=== PATIENT | male | born 1990 | race Caucasian/White ===

== ENCOUNTER 2016-06-19 04:20 | Emergency (ER) | payer SELFPAY ==
[~2016-06-19] VITALS: Ht 180.3 cm; Wt 64.0 kg
--- NOTE | 2016-06-19 04:30 | NUR ---
[facility] FOR REPORT HEART PALPITATIONS S/P INJECTING HEROIN [id number] CAREER TECHNICAL EDUCATION INSTRUCTOR, BG 134 IN FIELD. PT AOX4 RR EVEN AND UNLABORED. NO SOB NOTED. NAD NOTED. NO NVD AT THS TIME. PT GOWNED AND PLACED ON MONITOR. AT BEDSIDE FOR EVAL.
[2016-06-19 05:28] VITALS: BP 128/70
--- NOTE | 2016-06-19 05:40 | NUR ---
Patient discharged to home in stable condition. Written and verbal after care instructions given. Patient verbalizes understanding of instruction. ambulatory with a steady gait
== END 2016-06-19 05:41 | disposition home or self-care (01) ==
LOC: ER 04:21
DX: F41.9 Anxiety disorder, unspecified (principal); F11.10 Opioid abuse, uncomplicated; F17.200 Nicotine dependence, unspecified, uncomplicated
CPT/HCPCS: 93005; 99283; A4606; Z7610

== ENCOUNTER → 2016-12-06 | Emergency (ER) | payer SELFPAY ==
[~2016-12-06] VITALS: Ht 180.3 cm; Wt 68.0 kg
--- NOTE | 2016-12-06 09:50 | NUR ---
BRITTNEY AND JUDSON FOR PSYCHE EVAL. PATIENT IN CUSTODY. PT IS AAO4. APPEARS IN NO APPARENT DISTRESS. RESPIRATION EVEN AND UNLABORED. VSS, DENIES SI. DENIES HI
--- NOTE | 2016-12-06 09:54 | NUR ---
MD MONAE AT BEDSIDE
[2016-12-06 10:06] LABS: BASOPHILS # (AUTO) 0.1 /CMM (0.0-0.2); BASOPHILS % (AUTO) 1.4 % (0.0-2.0); EOSINOPHILS # (AUTO) 0.1 /CMM (0.0-0.7); EOSINOPHILS % (AUTO) 1.1 % (0.0-6.0); HEMATOCRIT 43 % (39-51); HEMOGLOBIN 14.3 g/dL (13.5-17.5); LYMPHOCYTES # (AUTO) 2.1 /CMM (0.8-4.8); LYMPHOCYTES % (AUTO) 37.8 % (20.0-44.0); MEAN CORPUSCULAR HEMOGLOBIN 31 PG (26.0-33.0); MEAN CORPUSCULAR HGB CONC 33 g/dl (31.0-36.0); MEAN CORPUSCULAR VOLUME 92 fL (80-96); MONOCYTES # (AUTO) 0.6 /CMM (0.1-1.30); NEUTROPHILS # (AUTO) 2.6 /CMM (1.8-8.9); NEUTROPHILS % (AUTO) 48.7 % (43.0-81.0); PLATELET COUNT (AUTO) 318 /CMM (150-450); RDW COEFFICIENT OF VARIATION 13.7 (11.5-15.0); RED BLOOD CELL COUNT(AUTO) 4.62 MIL/uL (4.5-6.0); WHITE BLOOD COUNT (AUTO) 5.5 K/uL (4.3-11.0)
--- NOTE | 2016-12-06 10:06 | NUR ---
PATIENT NOT IN CUSTODY
--- NOTE | 2016-12-06 10:08 | NUR ---
URINE OBTAINED AND SENT TO LAB.
[2016-12-06 10:16] LABS: CALCIUM, SERUM 8.6 mg/dL (8.5-10.1); CARBON DIOXIDE 28 mmol/L (21-32); CHLORIDE 103 mmol/L (98-107); CREATININE 1.1 mg/dL (0.6-1.3); GLUCOSE 101 mg/dL (74-106); POTASSIUM 3.8 mmol/L (3.5-5.1); SODIUM SERUM 139 mmol/L (136-145); UREA NITROGEN, BLOOD 16 mg/dL (7-18)
[2016-12-06 10:22] LABS: ALANINE AMINOTRANSFERASE 96 U/L (12-78); ALBUMIN 3.8 g/dL (3.4-5.0); ALKALINE PHOSPHATASE 45 U/L (46-116); ASPARTATE AMINOTRANSFERASE 32 U/L (15-37); BILIRUBIN,DIRECT 0.1 mg/dL (0.0-0.2); BILIRUBIN,TOTAL 0.6 mg/dL (0.2-1.0); TOTAL PROTEIN, SERUM 7.5 g/dL (6.4-8.2)
[2016-12-06 10:24] LABS: ACETAMINOPHEN 0 ug/ml (10-30); ALCOHOL, BLOOD < 3 mg/dL (0-0); SALICYLATE 1.8 mg/dL (2.8-20.0)
--- NOTE | 2016-12-06 10:33 | NUR ---
UNA RN,ACADEMIC ASSISTANT CALLED FOR EVAL
[2016-12-06 10:40] LABS: BILIRUBIN,URINE Negative (NEGATIVE); BLOOD, URINE Negative Ery/uL (NEGATIVE); KETONES,URINE Trace (NEGATIVE); LEUKOCYTE ESTERASE ,URINE Negative (NEGATIVE); NITRITE, URINE Negative (NEGATIVE); PROTEIN,URINE Trace mg/dl (NEGATIVE); UGLUCOSE Negative (NEGATIVE); UROBILINOGEN,URINE 0.2 EU/dL (0.2)
[2016-12-06 10:42] LABS: APPEARANCE,URINE Hazy (CLEAR); COLOR,URINE Dark Yellow (YELLOW)
[2016-12-06 10:45] LABS: BACTERIA,URINE None seen /HPF (None Seen); RBC,URINE 0-3 /HPF (0-2); WBC,URINE 0-2 /HPF (0-3)
[2016-12-06 10:46] LABS: SQUAMOUS EPITHELIAL CELL,UR Few /HPF (None Seen); URINE AMORPHOUS URATE Few /HPF (None Seen)
--- NOTE | 2016-12-06 11:38 | NUR ---
UNA, CRISIS RN AT BS
[2016-12-06 11:44] VITALS: BP 132/88
== END | disposition home or self-care (01) ==
LOC: ER 09:53
DX: F41.9 Anxiety disorder, unspecified (principal); F15.10 Other stimulant abuse, uncomplicated; F32.9 Major depressive disorder, single episode, unspecified; F17.200 Nicotine dependence, unspecified, uncomplicated; F11.10 Opioid abuse, uncomplicated
CPT/HCPCS: 36415; 80048-TC; 80076-TC; 80305; 81000-TC; 85025-TC; A4606; G0480; Z7610

== ENCOUNTER 2017-01-06 06:04 | Emergency (ER) | payer SELFPAY ==
[~2017-01-06] VITALS: Ht 172.7 cm; Wt 59.0 kg
[2017-01-06 06:07] VITALS: BP 121/67
== END 2017-01-06 06:36 ==
LOC: ER 06:06
DX: F22 Delusional disorders (principal); F15.10 Other stimulant abuse, uncomplicated; F31.9 Bipolar disorder, unspecified; F17.200 Nicotine dependence, unspecified, uncomplicated; F11.10 Opioid abuse, uncomplicated
CPT/HCPCS: 99283; A4606; Z7610

== ENCOUNTER 2017-01-06 11:51 | Emergency (ER) | payer SELFPAY ==
[~2017-01-06] VITALS: Ht 175.3 cm; Wt 79.4 kg
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
--- NOTE | 2017-01-06 12:00 | NUR ---
dr patel at bedside for eval.
--- NOTE | 2017-01-06 12:02 | NUR ---
engineer geophysical laboratory at bedside for blood draw.
--- NOTE | 2017-01-06 12:02 | NUR ---
Meliza castillo in [place] - 01/06/17 at 1213 by CHAI slab worker at bedside for christinaal.
[2017-01-06 12:11] LABS: BASOPHILS % (AUTO) 0.5 % (0.0-2.0); EOSINOPHILS # (AUTO) 0.1 /CMM (0.0-0.7); EOSINOPHILS % (AUTO) 0.8 % (0.0-6.0); HEMATOCRIT 44 % (39-51); HEMOGLOBIN 15.1 g/dL (13.5-17.5); LYMPHOCYTES # (AUTO) 2.2 /CMM (0.8-4.8); LYMPHOCYTES % (AUTO) 29.4 % (20.0-44.0); MEAN CORPUSCULAR HEMOGLOBIN 31 PG (26.0-33.0); MEAN CORPUSCULAR HGB CONC 34 g/dl (31.0-36.0); MEAN CORPUSCULAR VOLUME 91 fL (80-96); MONOCYTES # (AUTO) 0.8 /CMM (0.1-1.30); MONOCYTES % (AUTO) 10.6 % (2.0-12.0); NEUTROPHILS # (AUTO) 4.2 /CMM (1.8-8.9); NEUTROPHILS % (AUTO) 58.7 % (43.0-81.0); PLATELET COUNT (AUTO) 327 /CMM (150-450); RDW COEFFICIENT OF VARIATION 12.9 (11.5-15.0); RED BLOOD CELL COUNT(AUTO) 4.83 MIL/uL (4.5-6.0); WHITE BLOOD COUNT (AUTO) 7.3 K/uL (4.3-11.0)
[2017-01-06 12:20] LABS: CALCIUM, SERUM 9.4 mg/dL (8.5-10.1); CARBON DIOXIDE 28 mmol/L (21-32); CHLORIDE 105 mmol/L (98-107); CREATININE 1.2 mg/dL (0.6-1.3); GLUCOSE 102 mg/dL (74-106); POTASSIUM 4.1 mmol/L (3.5-5.1); SODIUM SERUM 140 mmol/L (136-145); UREA NITROGEN, BLOOD 15 mg/dL (7-18)
[2017-01-06 12:25] LABS: ALANINE AMINOTRANSFERASE 158 U/L (12-78); ALBUMIN 3.9 g/dL (3.4-5.0); ALCOHOL, BLOOD < 3 mg/dL (0-0); ALKALINE PHOSPHATASE 44 U/L (46-116); ASPARTATE AMINOTRANSFERASE 56 U/L (15-37); BILIRUBIN,DIRECT 0.1 mg/dL (0.0-0.2); BILIRUBIN,TOTAL 0.4 mg/dL (0.2-1.0); TOTAL PROTEIN, SERUM 7.5 g/dL (6.4-8.2)
[2017-01-06 12:26] LABS: ACETAMINOPHEN < 2 ug/ml (10-30); SALICYLATE 2.3 mg/dL (2.8-20.0)
[2017-01-06 12:53] LABS: BILIRUBIN,URINE Negative (NEGATIVE); BLOOD, URINE Negative Ery/uL (NEGATIVE); COLOR,URINE Yellow (YELLOW); KETONES,URINE 15 (NEGATIVE); LEUKOCYTE ESTERASE ,URINE Negative (NEGATIVE); NITRITE, URINE Negative (NEGATIVE); PH,URINE 8.5 (5.0-8.0); PROTEIN,URINE Trace mg/dl (NEGATIVE); UGLUCOSE Negative (NEGATIVE)
[2017-01-06 13:00] LABS: APPEARANCE,URINE CLOUDY (CLEAR)
[2017-01-06 13:05] LABS: BACTERIA,URINE Rare /HPF (None Seen); RBC,URINE NONE SEEN /HPF (0-2); SQUAMOUS EPITHELIAL CELL,UR Few /HPF (None Seen); WBC,URINE NONE SEEN /HPF (0-3)
--- NOTE | 2017-01-06 13:05 | NUR ---
CALLED [facility]IE FOR PSYCH EVAL, ETA WITHIN THE HOUR
--- NOTE | 2017-01-06 13:55 | NUR ---
héctor rn at bedside for psych eval.
[2017-01-06] MEDS ORDERED: QUETIAPINE FUMARATE 100 MG TABLET PO SCH (15:00)
[2017-01-06] MEDS ORDERED: QUETIAPINE FUMARATE 25 MG TABLET ONE (15:00)
--- NOTE | 2017-01-06 15:00 | NUR ---
pt is restless, requesting to go out and smoke. states he cant sleep and wants to and requesting a sleep aid. ermd aware.
--- NOTE | 2017-01-06 15:04 | NUR ---
medicated as ordered.
--- NOTE | 2017-01-06 19:05 | NUR ---
pt resting in bed. provided w/ sandwich and oral fluids. on monitor. stable vitals. will continue to monitor.
--- NOTE | 2017-01-06 23:36 | NUR ---
REPORT TO CHARGE NURSE EFREN FOR TRAY.
[2017-01-07] MEDS ORDERED: LORAZEPAM 1 MG TABLET ONE (01:04)
[2017-01-07] MEDS ORDERED: LORAZEPAM 1 MG TABLET PO ONE (01:30)
[2017-01-07] MEDS ORDERED: OLANZAPINE 10 MG VIAL IM ONE ×2 (03:21→03:30)
[2017-01-07] MEDS ORDERED: LORAZEPAM INJ 2 MG/ML VIAL ONE (03:24)
[2017-01-07] MEDS ORDERED: LORAZEPAM INJ 2 MG/ML VIAL IM ONE (03:30)
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
[2017-01-07 03:34] VITALS: BP 142/79
--- NOTE | 2017-01-07 09:28 | NUR ---
A/O X 4,DENIES SI/HI,AMBULATED TO THE BATHROOM W/ STEADY GAIT.ASKED TO BE CLEARED BY THE DOCTOR
--- NOTE | 2017-01-07 09:35 | NUR ---
DR PONCE WENT TO SEE PATIENT BUT PATIENT WAS NO LONGER THERE.
== END 2017-01-07 09:38 | disposition left against medical advice (07) ==
LOC: ER 11:53
DX: F22 Delusional disorders (principal); F15.10 Other stimulant abuse, uncomplicated; F31.9 Bipolar disorder, unspecified; F17.200 Nicotine dependence, unspecified, uncomplicated; F11.10 Opioid abuse, uncomplicated
CPT/HCPCS: 36415; 80048; 80076; 80305; 80329; 81001; 85025; 96372 ×2; 99284; A4606; G0480 ×2; J2060; J3490; Z7610; 81000-TC

== ENCOUNTER 2017-05-27 22:51 | Emergency (ER) | payer MEDICAID ==
[~2017-05-27] VITALS: Ht 182.9 cm; Wt 65.8 kg
--- NOTE | 2017-05-27 22:55 | NUR ---
URINE SPECIMEN OBTAINED AND SENT TO THE LAB.
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
--- NOTE | 2017-05-27 23:10 | NUR ---
AT BEDSIDE FOR EVAL.
--- NOTE | 2017-05-27 23:15 | NUR ---
LAB AT BEDSIDE FOR DRAW.
[2017-05-27 23:19] LABS: BASOPHILS % (AUTO) 0.5 % (0.0-2.0); EOSINOPHILS % (AUTO) 0.7 % (0.0-6.0); HEMATOCRIT 42 % (39-51); HEMOGLOBIN 14.5 g/dL (13.5-17.5); LYMPHOCYTES # (AUTO) 2.2 /CMM (0.8-4.8); LYMPHOCYTES % (AUTO) 26.4 % (20.0-44.0); MEAN CORPUSCULAR HGB CONC 34 g/dl (31.0-36.0); MEAN CORPUSCULAR VOLUME 92 fL (80-96); MONOCYTES # (AUTO) 0.9 /CMM (0.1-1.30); MONOCYTES % (AUTO) 11.3 % (2.0-12.0); NEUTROPHILS # (AUTO) 5.1 /CMM (1.8-8.9); NEUTROPHILS % (AUTO) 61.1 % (43.0-81.0); PLATELET COUNT (AUTO) 184 /CMM (150-450); RDW COEFFICIENT OF VARIATION 12.9 (11.5-15.0); RED BLOOD CELL COUNT(AUTO) 4.57 MIL/uL (4.5-6.0); WHITE BLOOD COUNT (AUTO) 8.3 K/uL (4.3-11.0)
[2017-05-27 23:29] LABS: APPEARANCE,URINE CLEAR (CLEAR); BILIRUBIN,URINE 2+ (NEGATIVE); BLOOD, URINE NEGATIVE Ery/uL (NEGATIVE); COLOR,URINE DARK YELLO (YELLOW); KETONES,URINE 2+ (NEGATIVE); LEUKOCYTE ESTERASE ,URINE NEGATIVE (NEGATIVE); NITRITE, URINE NEGATIVE (NEGATIVE); PH,URINE 5.5 (5.0-8.0); PROTEIN,URINE NEGATIVE (NEGATIVE); UGLUCOSE NEGATIVE (NEGATIVE); UROBILINOGEN,URINE 0.2 EU/dL (0.2)
[2017-05-27 23:38] LABS: BACTERIA,URINE None seen /HPF (None Seen); RBC,URINE NONE SEEN /HPF (0-2); SQUAMOUS EPITHELIAL CELL,UR Few /HPF (None Seen)
--- NOTE | 2017-05-28 00:15 | NUR ---
PT GIVEN SANDWICH AND ORANGE JUICE. VSS.
[2017-05-28 00:33] LABS: CALCIUM, SERUM 9.2 mg/dL (8.5-10.1); CARBON DIOXIDE 21 mmol/L (21-32); CHLORIDE 99 mmol/L (98-107); GLUCOSE 77 mg/dL (74-106); POTASSIUM 4.1 mmol/L (3.5-5.1); SODIUM SERUM 136 mmol/L (136-145); UREA NITROGEN, BLOOD 20 mg/dL (7-18)
--- NOTE | 2017-05-28 00:36 | NUR ---
RICK BIBLE TEACHER PAGED.
[2017-05-28 00:37] LABS: ACETAMINOPHEN 0 ug/ml (10-30); ALANINE AMINOTRANSFERASE 78 U/L (12-78); ALBUMIN 4.1 g/dL (3.4-5.0); ALCOHOL, BLOOD < 3 mg/dL (0-0); ALKALINE PHOSPHATASE 44 U/L (46-116); ASPARTATE AMINOTRANSFERASE 45 U/L (15-37); BILIRUBIN,DIRECT 0.2 mg/dL (0.0-0.2); BILIRUBIN,TOTAL 0.9 mg/dL (0.2-1.0); SALICYLATE 2.7 mg/dL (2.8-20.0); TOTAL PROTEIN, SERUM 8.1 g/dL (6.4-8.2)
[2017-05-28] MEDS ORDERED: LORAZEPAM 1 MG TABLET ONE (01:26)
[2017-05-28] MEDS ORDERED: LORAZEPAM 1 MG TABLET PO ONE (01:30)
--- NOTE | 2017-05-28 01:45 | NUR ---
RICK AT BEDSIDE FOR EVAL.
[2017-05-28 03:58] VITALS: BP 130/80
== END 2017-05-28 03:58 | disposition home or self-care (01) ==
LOC: ER 22:52
DX: F41.9 Anxiety disorder, unspecified (principal); F19.10 Other psychoactive substance abuse, uncomplicated; F31.9 Bipolar disorder, unspecified; F17.200 Nicotine dependence, unspecified, uncomplicated
CPT/HCPCS: 36415; 80048-TC; 80076-TC; 80305; 81000-TC; 85025-TC; A4606; G0480; Z7610

== ENCOUNTER 2017-08-31 20:26 | Inpatient (IN) | payer MEDICAID, OTHER ==
[~2017-08-31] VITALS: Ht 180.3 cm; Wt 66.7 kg
--- NOTE | 2017-08-31 20:34 | NUR ---
REPORT GIVEN TO DARREN RIBEIRO BED 118-1T
[2017-08-31 20:48] LABS: BASOPHILS # (AUTO) 0.2 /CMM (0.0-0.2); BASOPHILS % (AUTO) 1.3 % (0.0-2.0); EOSINOPHILS % (AUTO) 0.4 % (0.0-6.0); HEMATOCRIT 46 % (39-51); LYMPHOCYTES # (AUTO) 0.9 /CMM (0.8-4.8); LYMPHOCYTES % (AUTO) 5.2 % (20.0-44.0); MEAN CORPUSCULAR HEMOGLOBIN 33 PG (26.0-33.0); MEAN CORPUSCULAR HGB CONC 35 g/dl (31.0-36.0); MEAN CORPUSCULAR VOLUME 94 fL (80-96); MONOCYTES # (AUTO) 0.8 /CMM (0.1-1.30); MONOCYTES % (AUTO) 4.8 % (2.0-12.0); NEUTROPHILS # (AUTO) 14.6 /CMM (1.8-8.9); NEUTROPHILS % (AUTO) 88.3 % (43.0-81.0); PLATELET COUNT (AUTO) 261 /CMM (150-450); RDW COEFFICIENT OF VARIATION 12.4 (11.5-15.0); RED BLOOD CELL COUNT(AUTO) 4.93 MIL/uL (4.5-6.0); WHITE BLOOD COUNT (AUTO) 16.6 K/uL (4.3-11.0)
[2017-08-31 21:01] LABS: CALCIUM, SERUM 8.8 mg/dL (8.5-10.1); CARBON DIOXIDE 26 mmol/L (21-32); CHLORIDE 101 mmol/L (98-107); CREATININE 1.6 mg/dL (0.6-1.3); GLUCOSE 191 mg/dL (74-106); POTASSIUM 3.9 mmol/L (3.5-5.1); SODIUM SERUM 138 mmol/L (136-145); UREA NITROGEN, BLOOD 21 mg/dL (7-18)
--- NOTE | 2017-08-31 21:06 | NUR ---
PT BROUGHT TO CT.
[2017-08-31 21:13] LABS: ALANINE AMINOTRANSFERASE 422 U/L (12-78); ALBUMIN 3.7 g/dL (3.4-5.0); ALCOHOL, BLOOD < 3 mg/dL (0-0); ALKALINE PHOSPHATASE 74 U/L (46-116); ASPARTATE AMINOTRANSFERASE 102 U/L (15-37); BILIRUBIN,DIRECT 0.1 mg/dL (0.0-0.2); BILIRUBIN,TOTAL 0.3 mg/dL (0.2-1.0); TOTAL PROTEIN, SERUM 7.5 g/dL (6.4-8.2)
[2017-08-31 21:22] LABS: ACETAMINOPHEN < 2 ug/ml (10-30); SALICYLATE 2.5 mg/dL (2.8-20.0)
--- NOTE | 2017-08-31 21:29 | NUR ---
CALLED DR TOBY GARCÍA ON THE PHONE WITH DR MONAE.
[2017-08-31] MEDS ORDERED: IV NS 0.9% 1,000 ML BAG IV ONE (21:30)
[2017-08-31] MEDS ORDERED: LIDOCAINE 2% JEL UROJET 10 ML MM ONE ×2 (21:34→22:00)
[2017-08-31] MEDS ORDERED: NALOXONE PREFILLED SYRINGE 2 MG/2 ML SYRINGE ONE (21:34)
[2017-08-31] MEDS ORDERED: ONDANSETRON HCL/PF 4 MG/2 ML VIAL ONE (21:35)
[2017-08-31] MEDS ORDERED: ONDANSETRON HCL/PF 4 MG/2 ML VIAL IV ONE (22:00)
[2017-08-31] MEDS ORDERED: NALOXONE HCL 0.4 MG/ML AMPUL IV ONE (22:00)
[2017-08-31 22:17] LABS: APPEARANCE,URINE SL CLOUDY (CLEAR); BILIRUBIN,URINE NEGATIVE (NEGATIVE); BLOOD, URINE NEGATIVE Ery/uL (NEGATIVE); COLOR,URINE YELLOW (YELLOW); KETONES,URINE NEGATIVE (NEGATIVE); LEUKOCYTE ESTERASE ,URINE NEGATIVE (NEGATIVE); NITRITE, URINE NEGATIVE (NEGATIVE); PROTEIN,URINE TRACE mg/dl (NEGATIVE); UGLUCOSE NEGATIVE (NEGATIVE); UROBILINOGEN,URINE 0.2 EU/dL (0.2)
[2017-08-31 22:30] LABS: BACTERIA,URINE None seen /HPF (None Seen); MUCUS,URINE Moderate /LPF (None Seen); RBC,URINE 0-2 /HPF (0-2); SQUAMOUS EPITHELIAL CELL,UR Few /HPF (None Seen); WBC,URINE 0-2 /HPF (0-3)
--- NOTE | 2017-08-31 23:00 | NUR ---
PT TRANSP TO BED 118-1 STABLE CONDITION. ENDORSED TO DARREN RIBEIRO
--- NOTE | 2017-08-31 23:30 | NUR ---
AUTOMATIC TRANSMISSION MECHANIC NOTE PT RECEIVED FROM ER, REPORT GIVEN BY ROSA MARIA. PT A&O3. PT PLACED ON TELE. SR HR 79. PT HAS A #18G IN (L) EJ IV FLUIDS INFUSING ORDERED. 1;1 SITTER AT BED SIDE. ALL SAFETY PRECAUTIONS TAKEN. WILL CONT TO MONITOR.
[2017-09-01] VITALS (7 sets, daily range): BP systolic 90–119; BP diastolic 53–64
[2017-09-01] MEDS ORDERED: MAG HYDROX/AL HYDROX/SIMETH 30 ML UDC PO PRN (00:30)
[2017-09-01] MEDS ORDERED: Z GUARD REMEDY 2 OZ OINT TP PRN (00:30)
[2017-09-01] MEDS ORDERED: LORAZEPAM INJ 2 MG/ML VIAL IV PRN (00:30)
[2017-09-01] MEDS ORDERED: HYDROCODONE/APAP 5/325MG 1 EACH TABLET PO PRN (00:30)
[2017-09-01] MEDS ORDERED: MORPHINE SULFATE INJ 2 MG/ML DISP.SYRIN IV PRN (00:30)
[2017-09-01] MEDS ORDERED: ACETAMINOPHEN 325 MG TABLET PO PRN (00:30)
[2017-09-01] MEDS ORDERED: MAGNESIUM HYDROXIDE 30 ML UDC PO PRN (00:30)
[2017-09-01] MEDS ORDERED: ZOLPIDEM TARTRATE 5 MG TABLET PO PRN (00:30)
[2017-09-01] MEDS ORDERED: ONDANSETRON HCL/PF 4 MG/2 ML VIAL IVP PRN (00:30)
[2017-09-01] MEDS: IV D5/0.45 NACL 1,000 ML IV PRN ×3 (00:41→17:23)
[2017-09-01] MEDS: ENOXAPARIN SODIUM 40 MG/0.4 ML DISP.SYRIN SQ SCH ×2 (00:46→23:41)
--- NOTE | 2017-09-01 07:17 | NUR ---
RN CLOSING NOTES NO SIGNIFICANT CHANGE IN PTS CONDITION OVER SHIFT. ALL ADMISSION ORDERS CARRIED OUT. ALL SAFETY PRECAUTIONS ENFORCED. 1:1 SITTER AT BED SIDE. WILL ENDORSE TO AM RN.
--- NOTE | 2017-09-01 07:30 | NUR ---
OPHTHALMIC NURSE INITIAL NOTES: RECEIVED PT IN BED SLEEPING, EASY TO AROUSE. A&O X3. ON O2 VIA NC AT LPM, SATURATING 99%. NO SOB NOTED AT THIS TIME. ON TELE MONITOR SINUS RHYTHM 74. 1:1 SITTER AT BEDSIDE ORDERED FOR SAFETY. IV TO L HAND INTACT, CONNECTED TO IV FLUIDS ORDERED. BED IN LOW LOCKED POSITION, CALL LIGHT WITHIN REACH. PT DENIES ANY PAIN OR DISCOMFORT AT THIS TIME, INQUIRING ABOUT WHEN HE CAN BE DISCHARGED. AWAITING PSYCH EVAL AND MD ROUNDS, PT AWARE. WILL CONTINUE TO MONITOR.
--- NOTE | 2017-09-01 09:00 | NUR ---
SCARF AND ANNEAL OPERATOR NOTES: PT'S MOM WEN (TONY) CALLED TO CHECK ON HER SON. STATED SHE WAS WORKING FOR 3 DAYS AND SHE CAME HOME AND FOUND HIM UNRESPONSIVE WHICH IS WHEN 911 WAS CALLED. PER MOM, PT HAS HOME MEDICATIONS OF ABILIFY AND ZOLOFT, WELL VISTARIL PRN. ALTHOUGH SHE IS UNSURE IF HE TAKES HIS MEDICATIONS ON A REGULAR BASIS. MOM IS ALSO CONCERNED THAT THIS WAS NOT ACCIDENTAL AND THAT HE HAS A HISTORY OF METH USE, WELL HEROIN. HE HAS BEEN HOSPITALIZED IN THE PAST AT [facility] FOR PSYCH PROBLEMS. WILL NOTIFY PSYCHOLOGIST DURING ROUNDS. PT CLOSELY MONITORED, 1:1 SITTER AT BEDSIDE AT ALL TIMES.
--- NOTE | 2017-09-01 09:28 | NUR ---
MOTHER: WEN (TONY). CELL PHONE # [phone]
--- NOTE | 2017-09-01 11:40 | NUR ---
[employer] NOTES: DR YOUNGBLOOD AT PT'S BEDSIDE FOR ASSESSMENT.
--- NOTE | 2017-09-01 18:00 | NUR ---
ORDERS: PER DR YOUNGBLOOD, CRISIS TEAM TO SEE PT. CHARGE NURSE AWARE, CRISIS TEAM WILL SEE PT TOMORROW MORNING. D/C IV FLUIDS, D/C TELE AND PLACE ON MED/SURG. CARRIED OUT
--- NOTE | 2017-09-01 18:30 | NUR ---
RN M/S END NOTES: PT SLEEPING IN BED, EASY TO AROUSE. NO C/O PAIN OR DISCOMFORT AT THIS TIME. DENIES SUICIDAL IDEATIONS. ON ROOM AIR, SATURATING 97% AND NO SOB NOTED. IV TO LH IN PLACE, SL. BED IN LOW LOCKED POSITION, CALL LIGHT WITHIN REACH. 1:[address] ORDERED. WILL ENDORSE TO PM SHIFT FOR CONTINUITY OF CARE.
--- NOTE | 2017-09-01 19:25 | NUR ---
RN M/S NOTE PATIENT RECEIVED RESTING COMFORTABLY IN BED, AOX3, SPEECH CLEAR, NO S/SX OF RESPIRATORY OR CARDIAC DISTRESS, ON ROOM AIR, DENIES PAIN, SKIN KEPT CLEAN AND DRY, SITTER AT BEDSIDE, , PATENT FLUSHING WELL, SITE CDI, RAC #18G WITH NS AT 100ML/HR, PATENT FLUSHING WELL, SITE CDI, SAFETY MAINTAINED AT ALL TIMES, CALL LIGHT WITHIN REACH, BED IN LOW LOCKED POSITION, WILL CONTINUE TO MONITOR FOR ANY CHANGES IN CONDITION. Addendum: 09/01/17 at 2026 by CARRILLO VICENTE RN (NO IV IN RAC) L EJ #18G SL, PATENT FLUSHING WELL, SITE CDI, L HAND #18G SD PATENT FLUSHING WELL, SITE CDI, PATENT FLUSHING WELL, SITE CDI, SAFETY MAINTAINED AT ALL TIMES, CALL LIGHT WITHIN REACH, BED IN LOW LOCKED POSITION, WILL CONTINUE TO MONITOR FOR ANY CHANGES IN CONDITION.
[2017-09-02 04:00] VITALS: BP 101/53
[2017-09-02 06:38] LABS: BASOPHILS % (AUTO) 0.5 % (0.0-2.0); HEMATOCRIT 40 % (39-51); HEMOGLOBIN 13.5 g/dL (13.5-17.5); LYMPHOCYTES % (AUTO) 33.4 % (20.0-44.0); MEAN CORPUSCULAR HEMOGLOBIN 33 PG (26.0-33.0); MEAN CORPUSCULAR HGB CONC 33 g/dl (31.0-36.0); MEAN CORPUSCULAR VOLUME 97 fL (80-96); MONOCYTES # (AUTO) 0.8 /CMM (0.1-1.30); MONOCYTES % (AUTO) 13.6 % (2.0-12.0); NEUTROPHILS % (AUTO) 50.5 % (43.0-81.0); PLATELET COUNT (AUTO) 202 /CMM (150-450); RDW COEFFICIENT OF VARIATION 13.3 (11.5-15.0); RED BLOOD CELL COUNT(AUTO) 4.16 MIL/uL (4.5-6.0); WHITE BLOOD COUNT (AUTO) 5.9 K/uL (4.3-11.0)
[2017-09-02 06:55] LABS: CALCIUM, SERUM 8.2 mg/dL (8.5-10.1); MAGNESIUM 1.8 mg/dL (1.8-2.4); PHOSPHORUS 2.6 mg/dL (2.5-4.9); POTASSIUM 4.5 mmol/L (3.5-5.1)
--- NOTE | 2017-09-02 07:36 | NUR ---
RN MS NOTES: RECEIVED PT ON BED ALERT, ORIENTED X3. VERBALLY RESPONSIVE. NO ACUTE DISTRESS NOTED. NO COMPLAINTS OF PAIN OR DISCOMFORT. NO SOB. SITTER AT BEDSIDE. IV ON LEFT EJ G18 AND LEFT HAND G18 INTACT AND PATENT. KEPT CLEAN, DRY AND COMFORTABLE. SAFETY AND FALL PRECAUTIONS OBSERVED AND MAINTAINED. CALL LIGHT WITHIN REACH. WILL CONTINUE TO MONITOR PT.
[2017-09-02 08:00] VITALS: BP 126/70
--- NOTE | 2017-09-02 11:50 | NUR ---
MS RN NOTES: PT WAS DISCHARGED HOME IN STABLE CONDITION. NO ACUTE DISTRESS NOTED. DENIES PAIN. NO SOB NOTED. IV ON LEFT HAND AND LEFT EJ WAS REMOVED. SKIN IS INTACT. DISCHARGE INSTRUCTIONS GIVEN. BELONGINGS LIST SIGNED AND DONE.
--- NOTE | 2017-09-03 09:59 | NUR ---
workers' compensation commissioner received consult for this patient. However, patient was discharged on 09/02/2017. SW unable to meet with the pt.
== END 2017-09-02 11:59 | disposition home or self-care (01) | DRG 816 ==
LOC: ER 20:27 → TELE 21:40 → TELE1 22:30 → MEDSG1 09-01 18:14
PROVIDERS: ADMIT Internal Medicine; ATTEND Internal Medicine
DX: T40.1X1A Poisoning by heroin, accidental (unintentional), initial encounter (principal); N17.0 Acute kidney failure with tubular necrosis; T42.4X1A Poisoning by benzodiazepines, accidental (unintentional), initial encounter; D72.829 Elevated white blood cell count, unspecified; Y92.009 Unspecified place in unspecified non-institutional (private) residence as the place of occurrence of the external cause; T43.621A Poisoning by amphetamines, accidental (unintentional), initial encounter; F17.210 Nicotine dependence, cigarettes, uncomplicated; F31.9 Bipolar disorder, unspecified; F41.9 Anxiety disorder, unspecified; R74.8 Abnormal levels of other serum enzymes
CPT/HCPCS: 36415; 70450-TC; 71045-TC; 80048-TC; 80076-TC; 80305; 81000-TC; 82550-TC; 83735-TC; 84100-TC; 85025-TC; 87081-TC; A4606; G0480; J1650; J2060; J2310; J2405; J3490; J7030; Z7610

== ENCOUNTER 2017-12-19 14:46 | Inpatient (IN) ==
[~2017-12-19] VITALS: Ht 180.3 cm; Wt 61.7 kg
--- NOTE | 2017-12-19 14:53 | NUR ---
PT BIB RA. APPARENT HEROIN OVERDOSE. GIVEN 2MG NARCAN IN RA VIA IV. PT STATES "FEELS LIKE SHIT" NO ACUTE DISTRESS NOTED. RESP EVEN/UNLABOURED. AOX4. NO SUICIDAL IDEATION. IN ER BED ON MONITOR.
[2017-12-19] MEDS ORDERED: IV NS 0.9% 500 ML BAG IV ONE (15:00)
[2017-12-19 15:16] LABS: BASOPHILS % (AUTO) 0.3 % (0.0-2.0); EOSINOPHILS % (AUTO) 0.4 % (0.0-6.0); HEMATOCRIT 48 % (39-51); HEMOGLOBIN 15.9 g/dL (13.5-17.5); LYMPHOCYTES # (AUTO) 1.1 /CMM (0.8-4.8); LYMPHOCYTES % (AUTO) 10.8 % (20.0-44.0); MEAN CORPUSCULAR HGB CONC 33 g/dl (31.0-36.0); MEAN CORPUSCULAR VOLUME 95 fL (80-96); MONOCYTES # (AUTO) 0.8 /CMM (0.1-1.30); MONOCYTES % (AUTO) 7.5 % (2.0-12.0); NEUTROPHILS # (AUTO) 8.5 /CMM (1.8-8.9); PLATELET COUNT (AUTO) 271 /CMM (150-450); RDW COEFFICIENT OF VARIATION 14.5 (11.5-15.0); RED BLOOD CELL COUNT(AUTO) 5.07 MIL/uL (4.5-6.0); WHITE BLOOD COUNT (AUTO) 10.5 K/uL (4.3-11.0)
[2017-12-19 15:20] LABS: CALCIUM, SERUM 9.3 mg/dL (8.5-10.1); CARBON DIOXIDE 26 mmol/L (21-32); CHLORIDE 101 mmol/L (98-107); CREATININE 1.4 mg/dL (0.6-1.3); GLUCOSE 133 mg/dL (74-106); POTASSIUM 3.7 mmol/L (3.5-5.1); SODIUM SERUM 136 mmol/L (136-145); UREA NITROGEN, BLOOD 14 mg/dL (7-18)
[2017-12-19 15:28] LABS: ALANINE AMINOTRANSFERASE 178 U/L (12-78); ALBUMIN 4.3 g/dL (3.4-5.0); ALKALINE PHOSPHATASE 58 U/L (46-116); ASPARTATE AMINOTRANSFERASE 51 U/L (15-37); BILIRUBIN,DIRECT 0.1 mg/dL (0.0-0.2); BILIRUBIN,TOTAL 0.3 mg/dL (0.2-1.0); SALICYLATE 0.8 mg/dL (2.8-20.0); TOTAL PROTEIN, SERUM 8.1 g/dL (6.4-8.2)
[2017-12-19 15:29] LABS: ACETAMINOPHEN < 0 ug/ml (10-30); ALCOHOL, BLOOD < 3 mg/dL (0-0)
[2017-12-19] MEDS ORDERED: PANTOPRAZOLE 40 MG TABLET.DR PO ONE (15:30)
[2017-12-19] MEDS ORDERED: NALOXONE PREFILLED SYRINGE 2 MG/2 ML SYRINGE ONE (15:38)
--- NOTE | 2017-12-19 15:40 | NUR ---
MD AT BEDSIDE. NOTED PT BECOMING MORE LETHARGIC, SHALLOW RESP. MD ORDER 2MG NARCAN.
--- NOTE | 2017-12-19 15:45 | NUR ---
CALLED NURSING STRICKLER ATTENDANT AND REQUESTED AN ICU BED FOR THIS PT.
[2017-12-19] MEDS ORDERED: NALOXONE HCL 0.4 MG/ML AMPUL IV ONE (16:00)
[2017-12-19] MEDS ORDERED: NALOXONE HCL 2 MG in IV D5W 245 ML IV PRN (16:00)
[2017-12-19] MEDS ORDERED: ALPR1TAB7 PO (16:06)
[2017-12-19] MEDS ORDERED: ARIP5TAB10 PO (16:06)
--- NOTE | 2017-12-19 16:17 | NUR ---
SPOKE WITH DR GARDNER AND JANELL PHARMACIST REGARDING NARCAN DRIP RATE. PER MD, INITIATE DRIP AT 1MG/HR AND TITRATE FOR LOC.
--- NOTE | 2017-12-19 16:41 | NUR ---
PT AWAKE ALERT ORIENTED. AROUSABLE. NARCAN DRIP INFUSING PER ORDERS. WILL CONTINUE TO MONITOR.
--- NOTE | 2017-12-19 17:18 | NUR ---
PT REMAINS AWAKE, ALERT, AND RESPONSIVE ON NARCAN DRIP AT 1MG/HR. VSS. CALLED FOR DINNER TRAY - OK PER DR GARDNER. REPORT CALLED TO JERRY BANKS FOR ADMISSION TO ICU
--- NOTE | 2017-12-19 17:21 | NUR ---
UNABLE TO PROVIDE URINE SAMPLE DESPITE MULTIPLE ATTEMPTS.
--- NOTE | 2017-12-19 17:40 | NUR ---
PT IS ASSIGNED TO ICU RM#: [id number], DX: HEROIN OVERDOSE, AND ACCEPTING MD: DR MONTANO
--- NOTE | 2017-12-19 18:11 | NUR ---
PT WILL NEED A TELE BED INSTEAD OF ICU
--- NOTE | 2017-12-19 18:49 | NUR ---
RESTING QUIETLY, NAD NOTED. NARCAN DRIP FINISHED. CLARIFIED ORDER WITH MD REGARDING CONTINUING NARCAN DRIP. PER MD, CONTINUE TO FLOOR. CALLED PHARMACY FOR NEW BAG.
--- NOTE | 2017-12-19 19:40 | NUR ---
CALLED NURSING NETWORK SECURITY CONSULTANT AND REQUESTED AN ICU BED FOR THIS PT.
--- NOTE | 2017-12-19 19:41 | NUR ---
REPORT GIVEN TO LAUREN BANKS FOR TRAY
--- NOTE | 2017-12-19 19:49 | NUR ---
PT IS ASSIGNED TO ICU RM#: [id number]
[2017-12-19] MEDS ORDERED: Potassium Chloride 20 MEQ in IV D5/ 0.9% NACL 1,000 ML IV PRN (20:30)
--- NOTE | 2017-12-19 20:50 | NUR ---
RN NOTE RECEIVED PT IN NO ACUTE DISTERSS IN BED. PT IS A/O X 4 AND ABLE TO MAKE NEEDS KNOWN. PT IS ON RA AND TOLERATING WELL WITH O2 SAT @ 98%. PT CONNECTED TO MONITOR WITH SR @ 62. PT NOT C/O ANY SOB, DIFFICULTY BREATHING OR PAIN. PT HAS LAC 18G THAT IS CLEAN DRY INTACT AND PATENT WITH NARCAN @ 1MG/HR. BED IN LOW LOCK POSITION WITH RAILS UP X 2. ALL SAFETY MEASURES ENSURED AND CARRIED OUT. ALL NEEDS MET, ALL ORDERS CARRIED OUT. WILL CONTINUE TO MONITOR.
[2017-12-19 21:03] VITALS: BP 120/69
[2017-12-19 21:05] VITALS: BP 120/69
[2017-12-19 21:12] LABS: APPEARANCE,URINE Clear (CLEAR); BILIRUBIN,URINE Negative (NEGATIVE); BLOOD, URINE Trace-intact Ery/uL (NEGATIVE); COLOR,URINE Yellow (YELLOW); KETONES,URINE Negative (NEGATIVE); LEUKOCYTE ESTERASE ,URINE Negative (NEGATIVE); NITRITE, URINE Negative (NEGATIVE); PH,URINE 5.5 (5.0-8.0); PROTEIN,URINE Negative (NEGATIVE); UGLUCOSE Negative (NEGATIVE); UROBILINOGEN,URINE 0.2 EU/dL (0.2)
[2017-12-19 21:14] LABS: BACTERIA,URINE Rare /HPF (None Seen); RBC,URINE 0-2 /HPF (0-2); SQUAMOUS EPITHELIAL CELL,UR Few /HPF (None Seen); WBC,URINE 0-2 /HPF (0-3)
--- NOTE | 2017-12-19 21:45 | NUR ---
RN NOTE NOTIFIED DR. MONTANO THAT PT IS A/O X 4 WITH REGULAR RESPIRATIONS. RECEIVED ORDERS FROM DR. MONTANO TO STOP NARCAN AND CONYINUE TO MONITOR.
[2017-12-19 22:00] VITALS: BP 90/50
[2017-12-19 22:15] VITALS: BP 85/43
[2017-12-19 22:30] VITALS: BP 109/69
[2017-12-19 23:00] VITALS: BP 103/54
[2017-12-20] VITALS (15 sets, daily range): BP systolic 91–109; BP diastolic 32–65
[2017-12-20 05:00] LABS: BASOPHILS % (AUTO) 0.2 % (0.0-2.0); EOSINOPHILS % (AUTO) 1.7 % (0.0-6.0); HEMATOCRIT 44 % (39-51); HEMOGLOBIN 14.7 g/dL (13.5-17.5); LYMPHOCYTES # (AUTO) 1.8 /CMM (0.8-4.8); LYMPHOCYTES % (AUTO) 24.8 % (20.0-44.0); MEAN CORPUSCULAR HGB CONC 34 g/dl (31.0-36.0); MEAN CORPUSCULAR VOLUME 95 fL (80-96); MONOCYTES # (AUTO) 0.9 /CMM (0.1-1.30); MONOCYTES % (AUTO) 12.3 % (2.0-12.0); NEUTROPHILS # (AUTO) 4.4 /CMM (1.8-8.9); PLATELET COUNT (AUTO) 243 /CMM (150-450); RDW COEFFICIENT OF VARIATION 14.5 (11.5-15.0); RED BLOOD CELL COUNT(AUTO) 4.57 MIL/uL (4.5-6.0); WHITE BLOOD COUNT (AUTO) 7.2 K/uL (4.3-11.0)
[2017-12-20 05:30] LABS: ALBUMIN 3.5 g/dL (3.4-5.0); BILIRUBIN,TOTAL 0.6 mg/dL (0.2-1.0); CALCIUM, SERUM 8.5 mg/dL (8.5-10.1); CREATININE 1.1 mg/dL (0.6-1.3); POTASSIUM 4.2 mmol/L (3.5-5.1); TOTAL PROTEIN, SERUM 6.9 g/dL (6.4-8.2)
--- NOTE | 2017-12-20 06:45 | NUR ---
RN NOTE PT REMAINS IN NO ACUTE DISTRESS IN BED. PT DID NOT HAVE ANY SIGNIFICANT CHANGE IN CONDITION DURING SHIFT. ALL NEEDS MET, ALL ORDERS CARRIED OUT. WILL ENDORSE TO AM RN FOR CONTINUITY OF CARE.
[2017-12-20] MEDS ORDERED: ARIPIPRAZOLE 5 MG TABLET PO SCH (09:00)
--- NOTE | 2017-12-20 09:54 | NUR ---
RN NOTE 0720: Received patient resting, arousable. A/Ox4. No respiratory distress noted. VSS. Kept call light at reach, awaiting Dr. Christie's rounds. PIV intact. 0800: S/E by Dr. Christie, still wanting to rest for now. With order for DC home, patient aware. 0930: Picked up by mother, discussed re: the DC orders, for PCP F/U in one week, verbalized understanding. Removed PIV, with minimal bleeding noted, applied pressure and dressing. Patient able to ambulate, with VSS.
== END 2017-12-20 10:00 | disposition home or self-care (01) | DRG 816 ==
LOC: ER 14:48 → ICU 18:06
PROVIDERS: ADMIT Internal Medicine; ATTEND Internal Medicine
DX: T40.1X1A Poisoning by heroin, accidental (unintentional), initial encounter (principal); N17.0 Acute kidney failure with tubular necrosis; B19.20 Unspecified viral hepatitis C without hepatic coma; F17.210 Nicotine dependence, cigarettes, uncomplicated; F14.10 Cocaine abuse, uncomplicated; F31.9 Bipolar disorder, unspecified; Y92.009 Unspecified place in unspecified non-institutional (private) residence as the place of occurrence of the external cause; R74.0 Nonspecific elevation of levels of transaminase and lactic acid dehydrogenase [LDH]; F15.10 Other stimulant abuse, uncomplicated
CPT/HCPCS: 36415; 71045-TC; 80048-TC; 80053-TC; 80076-TC; 80305; 81000-TC; 85025-TC; 87081-TC; A4606; G0378; G0480; J2310; J3480; J7040; J7042; J7060; Z7610

== ENCOUNTER 2018-04-28 21:02 | Inpatient (IN) | payer OTHER ==
[~2018-04-28] VITALS: Ht 180.3 cm; Wt 66.2 kg
[~2018-04-28 21:02] MED LIST: ALPR1TAB7 PO; ARIP5TAB10 PO
--- NOTE | 2018-04-28 21:09 | NUR ---
PT [id number] FROM HOME C/O HEROIN OVERDOSE PER FAMILY, RESP ON SCENE 8 RPM. GIVEN NARCAN 6MG DATA ARCHITECT. STATES ALSO TOOK UNK AMT XANAX. PT ON MONITOR IN BED 10. VSS. PT NONVERBAL. WILL CONTINUE TO MONITOR.
--- NOTE | 2018-04-28 21:22 | NUR ---
MOTHER AT BEDSIDE
--- NOTE | 2018-04-28 22:22 | NUR ---
TECH AT BEDSIDE FOR EKG
[2018-04-28 22:28] LABS: BASOPHILS % (AUTO) 0.1 % (0.0-2.0); EOSINOPHILS % (AUTO) 3.2 % (0.0-6.0); HEMATOCRIT 50 % (39-51); LYMPHOCYTES # (AUTO) 2.7 /CMM (0.8-4.8); LYMPHOCYTES % (AUTO) 10.5 % (20.0-44.0); MEAN CORPUSCULAR HGB CONC 34 g/dl (31.0-36.0); MEAN CORPUSCULAR VOLUME 95 fL (80-96); MONOCYTES # (AUTO) 0.9 /CMM (0.1-1.30); MONOCYTES % (AUTO) 3.3 % (2.0-12.0); NEUTROPHILS # (AUTO) 21.5 /CMM (1.8-8.9); NEUTROPHILS % (AUTO) 82.9 % (43.0-81.0); PLATELET COUNT (AUTO) 270 /CMM (150-450)
[2018-04-28] MEDS ORDERED: NALOXONE PREFILLED SYRINGE 2 MG/2 ML SYRINGE IV ONE (22:30)
[2018-04-28] MEDS ORDERED: IV NS 0.9% 1,000 ML BAG IV ONE (22:30)
[2018-04-28 22:37] LABS: CALCIUM, SERUM 9.4 mg/dL (8.5-10.1); CARBON DIOXIDE 25 mmol/L (21-32); CHLORIDE 105 mmol/L (98-107); CREATININE 1.9 mg/dL (0.6-1.3); GLUCOSE 109 mg/dL (74-106); POTASSIUM 4.2 mmol/L (3.5-5.1); SODIUM SERUM 140 mmol/L (136-145); UREA NITROGEN, BLOOD 23 mg/dL (7-18)
[2018-04-28 22:48] LABS: ALANINE AMINOTRANSFERASE 230 U/L (12-78); ALBUMIN 4.4 g/dL (3.4-5.0); ALCOHOL, BLOOD < 3 mg/dL (0-0); ALKALINE PHOSPHATASE 51 U/L (46-116); ASPARTATE AMINOTRANSFERASE 71 U/L (15-37); BILIRUBIN,DIRECT 0.1 mg/dL (0.0-0.2); BILIRUBIN,TOTAL 0.3 mg/dL (0.2-1.0); TOTAL PROTEIN, SERUM 8.1 g/dL (6.4-8.2)
[2018-04-28 22:50] LABS: ACETAMINOPHEN < 2 ug/ml (10-30); SALICYLATE 2.2 mg/dL (2.8-20.0)
[2018-04-28] MEDS ORDERED: NALOXONE PREFILLED SYRINGE 2 MG/2 ML SYRINGE ONE (22:51)
[2018-04-28] MEDS: NALOXONE HCL 2 MG in IV D5W 245 ML IV PRN (23:00)
--- NOTE | 2018-04-29 01:32 | NUR ---
Patient is resting comfortably in bed with eyes closed. Easily aroused. VSS
--- NOTE | 2018-04-29 03:30 | NUR ---
Patient is resting comfortably in bed with eyes closed. Easily aroused.
--- NOTE | 2018-04-29 05:12 | NUR ---
report given to harjit Quevedo for continuation of care.
--- NOTE | 2018-04-29 06:00 | NUR ---
RN NOTES RECEIVED PATIENT'S REPORT FROM ED RN AND RECEIVED PATIENT ON ISRAEL. PATIENT IS A/A/OX4, NO ACUTE DISTRESS, NO SOB NOTED AT THIS TIME. PATIENT WAS PLACED ON SKEIN WINDING OPERATOR WITH SR. SKIN ASSESSMENT HAS BEEN DONE AND PICTURES ARE TAKEN. V/S ARE WNL AT THIS MOMENT. IV LINE ON LEFT WRIST G20 IS PATIENT AND INTACT. PATIENT IS ORIENTED TO OUR UNIT AND HAS BEEN ASKED TO USE THE CALL LIGHT FOR ASSISTANCE. ALL SAFETY MEASURES ARE IMPLEMENTED, BED IN LOW, LOCKED POSITION, CALL LIGHT IN REACH. WILL CONTINUE TO MONITOR PATIENT CLOSELY.
[2018-04-29] MEDS: NALOXONE HCL 2 MG in IV D5W 245 ML IV PRN (06:01)
[2018-04-29 06:40] VITALS: BP 120/86
[2018-04-29] MEDS ORDERED: NALOXONE HCL 0.4 MG/ML AMPUL IV PRN (07:30)
[2018-04-29] MEDS ORDERED: IV D5/ 0.9% NACL 1,000 ML IV PRN ×2 (07:30)
[2018-04-29 08:00] VITALS: BP 108/78
[2018-04-29 08:53] LABS: BASOPHILS % (AUTO) 0.1 % (0.0-2.0); EOSINOPHILS % (AUTO) 0.3 % (0.0-6.0); HEMATOCRIT 44 % (39-51); HEMOGLOBIN 14.9 g/dL (13.5-17.5); LYMPHOCYTES # (AUTO) 1.7 /CMM (0.8-4.8); LYMPHOCYTES % (AUTO) 12.2 % (20.0-44.0); MEAN CORPUSCULAR HGB CONC 34 g/dl (31.0-36.0); MEAN CORPUSCULAR VOLUME 95 fL (80-96); MONOCYTES # (AUTO) 1.4 /CMM (0.1-1.30); MONOCYTES % (AUTO) 10.1 % (2.0-12.0); NEUTROPHILS % (AUTO) 77.3 % (43.0-81.0); PLATELET COUNT (AUTO) 212 /CMM (150-450); RED BLOOD CELL COUNT(AUTO) 4.64 MIL/uL (4.5-6.0); WHITE BLOOD COUNT (AUTO) 14.2 K/uL (4.3-11.0)
[2018-04-29 09:00] VITALS: BP 108/78
[2018-04-29 09:01] LABS: CALCIUM, SERUM 8.1 mg/dL (8.5-10.1); CREATININE 2.2 mg/dL (0.6-1.3)
--- NOTE | 2018-04-29 10:44 | NUR ---
RN NOTES MANAGER BIOLOGICS IS AT THE BEDSIDE AND PATIENT IS REFUSING TO TALK TO HER. PATIENT IS IN BED, A/A/OX4 AT THIS TIME. WILL CONTINUE TO MONITOR PATIENT CLOSELY.
--- NOTE | 2018-04-29 11:12 | NUR ---
Social service consult requested by Dr. Christie for drug abuse. Pt. is a 27 year old male who was admitted to [facility] for heroin overdose. TALHA met with pt. bedside. Pt. is alert and oriented bedside. SW introduced herself to the pt. Pt. replied by stating, " I don't want to speak to a Workforce Planner. " Pt. declined speaking to SW and SW was unable to assess pt. and offer drug rehabilitation referrals. TALHA updated pt's RN Sonia regarding pt's refusal to speak with SW.
--- NOTE | 2018-04-29 12:30 | NUR ---
RN NOTES PATIENT HAS BEEN D/C BY MD CHARMAINE LAMBERT. EXIT CARE PROVIDED TO THE PATIENT, IV LINE REMOVED, WRIST BAND HAS BEEN CUT. ALL TEACHING HAS BEEN PROVIDED TO THE PATIENT. PATIENT LEFT HOME TO SELF CARE WITH HIS MOTHER.
== END 2018-04-29 12:30 | disposition home or self-care (01) | DRG 816 ==
LOC: ER 21:03 → TELE-TD 04-29 05:05
PROVIDERS: ADMIT Internal Medicine; ATTEND Internal Medicine
DX: T40.1X1A Poisoning by heroin, accidental (unintentional), initial encounter (principal); N17.0 Acute kidney failure with tubular necrosis; F14.10 Cocaine abuse, uncomplicated; F19.10 Other psychoactive substance abuse, uncomplicated; Y92.009 Unspecified place in unspecified non-institutional (private) residence as the place of occurrence of the external cause; F17.210 Nicotine dependence, cigarettes, uncomplicated; F31.9 Bipolar disorder, unspecified; Z86.19 Personal history of other infectious and parasitic diseases; F41.9 Anxiety disorder, unspecified; F15.10 Other stimulant abuse, uncomplicated; S80.02XA Contusion of left knee, initial encounter; S80.01XA Contusion of right knee, initial encounter; S40.021A Contusion of right upper arm, initial encounter; W19.XXXA Unspecified fall, initial encounter; Y93.9 Activity, unspecified; R74.0 Nonspecific elevation of levels of transaminase and lactic acid dehydrogenase [LDH]
CPT/HCPCS: 36415; 71045-TC; 80048-TC; 80076-TC; 85025-TC; 87081-TC; A6402; A6403; G0378; G0480; J2310; J7030; J7042; J7060

== ENCOUNTER 2018-12-21 13:25 | Emergency (ER) | payer OTHER ==
[~2018-12-21] VITALS: Ht 180.3 cm; Wt 69.9 kg
--- NOTE | 2018-12-21 13:35 | NUR ---
PATIENT [id number], TOOK HEROIN AND FRIEND GAVE HIM NARCAN SPRAY. ON ROOM AIR, BREATHING EVENLY AND UNLABORED. CONNECTED TO THE MONITOR AND PULSE OX. SITTER AT BEDSIDE. WILL CONTINUE TO MONITOR ACCORDINGLY.
[2018-12-21 16:23] VITALS: BP 125/71
--- NOTE | 2018-12-21 16:24 | NUR ---
Patient discharged to home in stable condition. Written and verbal after care instructions given. Patient verbalizes understanding of instruction.
== END 2018-12-21 16:24 | disposition home or self-care (01) ==
LOC: ER 13:25
DX: T40.1X1A Poisoning by heroin, accidental (unintentional), initial encounter (principal); F32.9 Major depressive disorder, single episode, unspecified; F17.200 Nicotine dependence, unspecified, uncomplicated; Z86.19 Personal history of other infectious and parasitic diseases; Z79.899 Other long term (current) drug therapy; Y92.89 Other specified places as the place of occurrence of the external cause

== ENCOUNTER 2019-03-24 19:07 | Emergency (ER) | payer OTHER ==
[~2019-03-24] VITALS: Ht 172.7 cm; Wt 68.0 kg
--- NOTE | 2019-03-24 19:43 | NUR ---
pt bib ra c/o "using a lot of meth". pt states he took a lot of meth and is feeling dehydrated. aaox4. vss. connected to monitor.
--- NOTE | 2019-03-24 19:49 | NUR ---
seen and examined by charla Acosta
--- NOTE | 2019-03-24 19:53 | NUR ---
blood drawn and sent with supervisor cloth winding to lab for testing
[2019-03-24 19:58] LABS: BASOPHILS % (AUTO) 0.3 % (0.0-2.0); EOSINOPHILS % (AUTO) 1.5 % (0.0-6.0); HEMATOCRIT 44 % (39-51); HEMOGLOBIN 14.9 g/dL (13.5-17.5); LYMPHOCYTES # (AUTO) 1.7 /CMM (0.8-4.8); LYMPHOCYTES % (AUTO) 22.7 % (20.0-44.0); MEAN CORPUSCULAR HGB CONC 34 g/dl (31.0-36.0); MEAN CORPUSCULAR VOLUME 95 fL (80-96); MONOCYTES # (AUTO) 0.7 /CMM (0.1-1.30); MONOCYTES % (AUTO) 9.2 % (2.0-12.0); NEUTROPHILS # (AUTO) 4.8 /CMM (1.8-8.9); NEUTROPHILS % (AUTO) 66.3 % (43.0-81.0); PLATELET COUNT (AUTO) 302 /CMM (150-450); RED BLOOD CELL COUNT(AUTO) 4.65 MIL/uL (4.5-6.0); WHITE BLOOD COUNT (AUTO) 7.3 K/uL (4.3-11.0)
[2019-03-24] MEDS ORDERED: IV NS 0.9% 1,000 ML BAG IV ONE (20:00)
[2019-03-24 20:13] LABS: CALCIUM, SERUM 8.8 mg/dL (8.5-10.1); CARBON DIOXIDE 28 mmol/L (21-32); CHLORIDE 104 mmol/L (98-107); GLUCOSE 98 mg/dL (74-106); SODIUM SERUM 141 mmol/L (136-145); UREA NITROGEN, BLOOD 17 mg/dL (7-18)
[2019-03-24 20:20] LABS: ACETAMINOPHEN < 2 ug/ml (10-30); ALANINE AMINOTRANSFERASE 24 U/L (12-78); ALBUMIN 3.8 g/dL (3.4-5.0); ALCOHOL, BLOOD < 3 mg/dL (0-0); ALKALINE PHOSPHATASE 54 U/L (46-116); ASPARTATE AMINOTRANSFERASE 25 U/L (15-37); BILIRUBIN,DIRECT 0.2 mg/dL (0.0-0.2); BILIRUBIN,TOTAL 0.6 mg/dL (0.2-1.0); SALICYLATE 3.2 mg/dL (2.8-20.0); TOTAL PROTEIN, SERUM 7.3 g/dL (6.4-8.2)
[2019-03-24] MEDS ORDERED: LORAZEPAM 1 MG TABLET ONE (20:54)
[2019-03-24] MEDS ORDERED: LORAZEPAM 1 MG TABLET PO ONE (21:00)
[2019-03-25 01:13] LABS: APPEARANCE,URINE Clear (CLEAR); BILIRUBIN,URINE SMALL (NEGATIVE); BLOOD, URINE Negative Ery/uL (NEGATIVE); COLOR,URINE Yellow (YELLOW); KETONES,URINE 40 (NEGATIVE); LEUKOCYTE ESTERASE ,URINE Negative (NEGATIVE); NITRITE, URINE Negative (NEGATIVE); PROTEIN,URINE Negative (NEGATIVE); UGLUCOSE Negative (NEGATIVE)
[2019-03-25 02:03] VITALS: BP 128/73
--- NOTE | 2019-03-25 02:03 | NUR ---
Patient discharged to home in stable condition. Written and verbal after care instructions given. Patient verbalizes understanding of instruction.
== END 2019-03-25 02:04 | disposition home or self-care (01) ==
LOC: ER 19:08
DX: F41.9 Anxiety disorder, unspecified (principal); F19.10 Other psychoactive substance abuse, uncomplicated; F32.9 Major depressive disorder, single episode, unspecified; F17.200 Nicotine dependence, unspecified, uncomplicated; Z86.19 Personal history of other infectious and parasitic diseases; Z79.899 Other long term (current) drug therapy
CPT/HCPCS: 36415; 80048; 80076; 80305; 80307; 80329; 81001; 85025; 99284; G0480; J7030; 81000-TC

== ENCOUNTER 2019-03-28 11:09 | Emergency (ER) | payer OTHER ==
[~2019-03-28] VITALS: Ht 177.8 cm; Wt 59.0 kg
--- NOTE | 2019-03-28 11:25 | NUR ---
MACHO RA 87 Homeless "Took Meth and Heroin earlier today. Feel sleepier than usual, Have NOT slept x2days (meth) and Not eaten". to er bed 15, hooked to monitor, changed to hosp gown, provided ww arm blanket, awaiting md thompson
--- NOTE | 2019-03-28 12:38 | NUR ---
charla pierre at bedside
--- NOTE | 2019-03-28 13:02 | NUR ---
DECLINED TO SPEAK W SW
--- NOTE | 2019-03-28 13:05 | NUR ---
Social service consult requested by ABRAHAM Ayala for homelessness and drug use. Per chart review and MD notes, pt is a 28-year-old male with a past medical history of polysubstance abuse including IV drug abuse, depression and hep C who was brought in by EMS from the streets for suspected overdose. PARTS SALESMAN received a call from pt's RN Mason requesting for SW consult. Upon arrival in ED, PARTS SALESMAN was informed by pt's bedside RN, that pt. declined to speak with PARTS SALESMAN. PARTS SALESMAN was unable to assess and provide any resources to the pt. No other social service needs are requested at this time.
--- NOTE | 2019-03-28 13:15 | NUR ---
Patient given written and verbal discharge instructions. Patient verbalizes understanding of instructions. Patient is ambulatory with steady gait. Refuses offer of [facility] placement. Patient given list of available shelters in surrounding area. Patient in proper clothing upon discharge. All belongings returned to patient. Signed homeless waiver form. Name band removed.
[2019-03-28 13:33] VITALS: BP 109/54
== END 2019-03-28 13:28 | disposition home or self-care (01) ==
LOC: ER 11:16
DX: F19.10 Other psychoactive substance abuse, uncomplicated (principal); F32.9 Major depressive disorder, single episode, unspecified; F41.9 Anxiety disorder, unspecified; F17.200 Nicotine dependence, unspecified, uncomplicated; Z86.19 Personal history of other infectious and parasitic diseases; Z79.899 Other long term (current) drug therapy

== ENCOUNTER 2019-03-30 04:10 | Emergency (ER) | payer OTHER ==
[~2019-03-30] VITALS: Ht 180.3 cm; Wt 65.8 kg
[2019-03-30] MEDS ORDERED: LORAZEPAM 1 MG TABLET PO ONE (04:30)
[2019-03-30] MEDS ORDERED: LORAZEPAM 1 MG TABLET ONE (04:50)
--- NOTE | 2019-03-30 04:58 | NUR ---
PT CAME TO ER BED 10 C/O FEELING ANXIOUS. PT STATES THAT HE HAD A LOT OF METH. ALSO STATES HE FEELS EXTREMELY ANXIOUS AND SCARED. AAOX4. NO SOB. BREATHING EVENLY AND UNLABORED ON ROOM AIR. AWAITING MD MENDOZA.
--- NOTE | 2019-03-30 08:16 | NUR ---
PROVIDED PATIENT WITH FOOD TRAY. PATIENT TOLERATING PO WELL.
[2019-03-30 08:20] VITALS: BP 129/70
--- NOTE | 2019-03-30 08:22 | NUR ---
Patient refused to sign homeless waiver form and dc paper
--- NOTE | 2019-03-30 08:25 | NUR ---
Patient given written and verbal discharge instructions. Patient verbalizes understanding of instructions. Patient is ambulatory with steady gait. Refuses offer of [facility]. Patient given list of available shelters in surrounding area. Patient assisted by security upon discharge, in proper clothing, name band removed. All belongings returned to patient
== END 2019-03-30 08:25 | disposition home or self-care (01) ==
LOC: ER 04:11
DX: F41.9 Anxiety disorder, unspecified (principal); F15.10 Other stimulant abuse, uncomplicated; F31.9 Bipolar disorder, unspecified; F19.10 Other psychoactive substance abuse, uncomplicated; Z86.19 Personal history of other infectious and parasitic diseases; F10.10 Alcohol abuse, uncomplicated; F17.200 Nicotine dependence, unspecified, uncomplicated; F14.10 Cocaine abuse, uncomplicated; Y90.9 Presence of alcohol in blood, level not specified; Z59.0 Homelessness; Z79.899 Other long term (current) drug therapy

== ENCOUNTER 2019-04-04 19:57 | Emergency (ER) | payer OTHER ==
[~2019-04-04] VITALS: Ht 180.3 cm; Wt 77.1 kg
--- NOTE | 2019-04-04 20:35 | NUR ---
PT BIBRA C/O PARANOIA. 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 PT DENIES SI/HI AT THIS TIME. PT AAOX4. APPEARS DISSHEVELED. RESPIRATIONS EVEN AND UNLABORED. VITAL SIGNS STABLE. NO ACUTE DISTRESS NOTED AT THIS TIME. WILL CONTINUE TO MONITOR
[2019-04-04 21:21] LABS: APPEARANCE,URINE Clear (CLEAR); BILIRUBIN,URINE Negative (NEGATIVE); BLOOD, URINE Negative Ery/uL (NEGATIVE); COLOR,URINE Yellow (YELLOW); KETONES,URINE 40 (NEGATIVE); LEUKOCYTE ESTERASE ,URINE Negative (NEGATIVE); NITRITE, URINE Negative (NEGATIVE); PROTEIN,URINE Negative (NEGATIVE); UGLUCOSE Negative (NEGATIVE); UROBILINOGEN,URINE 0.2 EU/dL (0.2)
[2019-04-04 21:31] LABS: BACTERIA,URINE Few /HPF (None Seen); RBC,URINE 0-2 /HPF (0-2); SQUAMOUS EPITHELIAL CELL,UR Few /HPF (None Seen); WBC,URINE 0-2 /HPF (0-3)
[2019-04-04 22:04] LABS: BASOPHILS % (AUTO) 0.4 % (0.0-2.0); EOSINOPHILS % (AUTO) 1.4 % (0.0-6.0); HEMATOCRIT 39 % (39-51); HEMOGLOBIN 13.2 g/dL (13.5-17.5); LYMPHOCYTES % (AUTO) 23.1 % (20.0-44.0); MEAN CORPUSCULAR HGB CONC 34 g/dl (31.0-36.0); MEAN CORPUSCULAR VOLUME 95 fL (80-96); MONOCYTES # (AUTO) 0.8 /CMM (0.1-1.30); MONOCYTES % (AUTO) 9.1 % (2.0-12.0); NEUTROPHILS # (AUTO) 5.7 /CMM (1.8-8.9); PLATELET COUNT (AUTO) 285 /CMM (150-450); RED BLOOD CELL COUNT(AUTO) 4.12 MIL/uL (4.5-6.0); WHITE BLOOD COUNT (AUTO) 8.7 K/uL (4.3-11.0)
--- NOTE | 2019-04-04 22:08 | NUR ---
PT PROVIDED WITH SANDWICH AND JUICE PER REQUEST
[2019-04-04 22:22] LABS: CALCIUM, SERUM 8.5 mg/dL (8.5-10.1); CARBON DIOXIDE 26 mmol/L (21-32); CHLORIDE 107 mmol/L (98-107); CREATININE 1.3 mg/dL (0.6-1.3); GLUCOSE 179 mg/dL (74-106); POTASSIUM 3.3 mmol/L (3.5-5.1); SODIUM SERUM 143 mmol/L (136-145); UREA NITROGEN, BLOOD 20 mg/dL (7-18)
[2019-04-04 22:28] LABS: ALANINE AMINOTRANSFERASE 30 U/L (12-78); ALBUMIN 3.5 g/dL (3.4-5.0); ALCOHOL, BLOOD < 3 mg/dL (0-0); ALKALINE PHOSPHATASE 44 U/L (46-116); ASPARTATE AMINOTRANSFERASE 41 U/L (15-37); BILIRUBIN,DIRECT 0.1 mg/dL (0.0-0.2); BILIRUBIN,TOTAL 0.6 mg/dL (0.2-1.0); SALICYLATE 2.9 mg/dL (2.8-20.0); TOTAL PROTEIN, SERUM 6.6 g/dL (6.4-8.2)
[2019-04-04 22:29] LABS: ACETAMINOPHEN 0 ug/ml (10-30)
[2019-04-05] MEDS ORDERED: LORAZEPAM 1 MG TABLET PO ONE
[2019-04-05] MEDS ORDERED: LORAZEPAM 1 MG TABLET ONE (00:14)
[2019-04-05] MEDS ORDERED: POTASSIUM CHLORIDE 20 MEQ TAB.PRT.SR PO ONE ×2 (00:48→01:00)
--- NOTE | 2019-04-05 00:52 | NUR ---
PT RESTING COMFORTABLY IN BED. VITAL SIGNS STABLE. WILL CONTINUE TO MONITOR
--- NOTE | 2019-04-05 05:20 | NUR ---
Patient discharged to home in stable condition. Written and verbal after care instructions given. Patient verbalizes understanding of instruction.Pt ambulatory with a steady gait
[2019-04-05 05:21] VITALS: BP 117/84
== END 2019-04-05 05:21 | disposition home or self-care (01) ==
LOC: ER 20:02
DX: F15.129 Other stimulant abuse with intoxication, unspecified (principal); E87.6 Hypokalemia; F32.9 Major depressive disorder, single episode, unspecified; Z59.0 Homelessness; F17.200 Nicotine dependence, unspecified, uncomplicated; Z86.19 Personal history of other infectious and parasitic diseases; Z79.899 Other long term (current) drug therapy
CPT/HCPCS: 36415; 80048; 80076; 80305; 80307; 80329; 81001; 85025; 99283; G0480; 81000-TC

== ENCOUNTER → 2019-04-05 | Emergency (ER) | payer OTHER ==
--- NOTE | 2019-04-05 18:00 | NUR ---
PT CALLED TO TRIAGE, PT NOT IN WAITING ROOM
--- NOTE | 2019-04-05 18:34 | NUR ---
PT CALLED TO TRIAGE, PT NOT IN WAITING ROOM
== END | disposition left against medical advice (07) ==
LOC: ER 16:42
DX: Z53.21 Procedure and treatment not carried out due to patient leaving prior to being seen by health care provider (principal)

== ENCOUNTER 2019-08-20 05:11 | Emergency (ER) | payer OTHER ==
[~2019-08-20] VITALS: Ht 180.3 cm; Wt 68.0 kg
--- NOTE | 2019-08-20 05:12 | NUR ---
BRITTNEY Bran FROM [place] FOR C/O HEARING VOICES AND SEEING THING. PER PT "THE VOICES TALK IN [place]" AND THEY'RE NOT TELLING HIM TO HURT HIMESELF; PT PLACED IN BED 6, SITTER AT BEDSIDE, S/I PRECAUTIONS STARTED. PT COOPERATIVE WITH STAFF. -SOB, DENIES CP. VSS. PENDING ER PROVIDER KELLY
--- NOTE | 2019-08-20 05:13 | NUR ---
ALL BELONGINGS IN LOCKER; LOCKER #6
[2019-08-20] MEDS ORDERED: LORAZEPAM 1 MG TABLET PO ONE (05:30)
[2019-08-20] MEDS ORDERED: OLANZAPINE 5 MG TABLET PO ONE (05:30)
--- NOTE | 2019-08-20 05:33 | NUR ---
URINE COLLECTED AND SENT TO LAB
[2019-08-20 05:37] LABS: BASOPHILS % (AUTO) 0.2 % (0.0-2.0); EOSINOPHILS % (AUTO) 0.1 % (0.0-6.0); HEMATOCRIT 45 % (39-51); LYMPHOCYTES # (AUTO) 0.5 /CMM (0.8-4.8); LYMPHOCYTES % (AUTO) 7.3 % (20.0-44.0); MEAN CORPUSCULAR HGB CONC 33 g/dl (31.0-36.0); MEAN CORPUSCULAR VOLUME 93 fL (80-96); MONOCYTES # (AUTO) 0.1 /CMM (0.1-1.30); MONOCYTES % (AUTO) 1.4 % (2.0-12.0); NEUTROPHILS # (AUTO) 5.7 /CMM (1.8-8.9); PLATELET COUNT (AUTO) 279 /CMM (150-450); RED BLOOD CELL COUNT(AUTO) 4.82 MIL/uL (4.5-6.0); WHITE BLOOD COUNT (AUTO) 6.2 K/uL (4.3-11.0)
[2019-08-20 05:50] LABS: CALCIUM, SERUM 9.3 mg/dL (8.5-10.1); CARBON DIOXIDE 29 mmol/L (21-32); CHLORIDE 100 mmol/L (98-107); CREATININE 1.1 mg/dL (0.6-1.3); GLUCOSE 86 mg/dL (74-106); SODIUM SERUM 136 mmol/L (136-145); UREA NITROGEN, BLOOD 16 mg/dL (7-18)
[2019-08-20 05:51] LABS: APPEARANCE,URINE Clear (CLEAR); BILIRUBIN,URINE Negative (NEGATIVE); BLOOD, URINE Negative Ery/uL (NEGATIVE); COLOR,URINE Yellow (YELLOW); KETONES,URINE Trace (NEGATIVE); LEUKOCYTE ESTERASE ,URINE Negative (NEGATIVE); NITRITE, URINE Negative (NEGATIVE); PH,URINE 6.5 (5.0-8.0); PROTEIN,URINE Trace mg/dl (NEGATIVE); UGLUCOSE Negative (NEGATIVE); UROBILINOGEN,URINE 0.2 EU/dL (0.2)
[2019-08-20 05:57] LABS: ACETAMINOPHEN 0 ug/ml (10-30); ALANINE AMINOTRANSFERASE 841 U/L (12-78); ALBUMIN 4.1 g/dL (3.4-5.0); ALCOHOL, BLOOD < 3 mg/dL (0-0); ALKALINE PHOSPHATASE 156 U/L (46-116); ASPARTATE AMINOTRANSFERASE 393 U/L (15-37); BILIRUBIN,DIRECT 0.5 mg/dL (0.0-0.2); SALICYLATE 0.8 mg/dL (2.8-20.0); TOTAL PROTEIN, SERUM 7.9 g/dL (6.4-8.2)
[2019-08-20 06:03] LABS: BACTERIA,URINE Few /HPF (None Seen); SPERM,URINE Rare /HPF (None Seen); SQUAMOUS EPITHELIAL CELL,UR Rare /HPF (None Seen)
[2019-08-20] MEDS ORDERED: LORAZEPAM 1 MG TABLET ONE (06:21)
[2019-08-20] MEDS ORDERED: OLANZAPINE 5 MG TABLET ONE (06:21)
--- NOTE | 2019-08-20 06:32 | NUR ---
pt moved to bed 14
--- NOTE | 2019-08-20 07:10 | NUR ---
REPORT GIVEN TO DARREN PIERCE FOR TRAY
--- NOTE | 2019-08-20 08:30 | NUR ---
SW CONSULT: [employer] Crewmember conducted chart review and met with patient at bedside for social work consult to assess for suicidal ideation. Pt was alert and oriented X3. Per MD note, "This patient complains that he has not slept for a couple of days and he is having a panic attack (he is anxious) is homeless and has a history of paranoid schizophrenia and has not taken his Abilify or Zyprexa in a couple of days. He is currently not sure if he wants voluntary psychiatric admission or not but he is sure that he is not suicidal and he is not hearing voices commanding him to do things against as well. He does have auditory hallucinations which sound like "gibberish". He wants a place to sleep for the time being and some Ativan." Pt reported he is currently homeless and has been homeless for approximately a year. Pt reported he resides in the [place] area. Pt reported he has psychiatric diagnoses of depression and anxiety and takes Zyprexa and Alprazolam. Pt reported his treating psychiatrist is in [place], and he sees him once a month. Pt denied suicidal and homicidal ideation. Pt denied alcohol use, but reported ongoing drug use with meth and heroin being his drugs of choice. Pt reported he attended drug rehab for six months in [place]. Substance abuse treatment and referrals were offered to the pt; pt declined. Pt reported he does not received any type of supplemental income at this time, "I'm waiting for this COVID thing to be over to go apply." Homeless resources including hygiene stations, food/meal resources, mental health support services, and supplemental application services were provided to the pt. Pt signed Homeless Waiver. [employer] Crewmember provided active listening, supportive counseling, and validation of feelings. Charge nurse updated regarding pt's discharge plan.
--- NOTE | 2019-08-20 08:38 | NUR ---
TALHA GOODE AT BEDSIDE
--- NOTE | 2019-08-20 09:41 | NUR ---
PT PROVIDED W/ MEAL TRAY. AMBULATORY W/ STEADY GAIT. MEDICALLY AND PSYCH CLEARED. PROVIDED W/ BUS PASS. D/C IN STABLE CONDITION.
[2019-08-20 09:43] VITALS: BP 115/30
== END 2019-08-20 09:44 | disposition home or self-care (01) ==
LOC: ER 05:12
DX: F41.9 Anxiety disorder, unspecified (principal); F15.10 Other stimulant abuse, uncomplicated; F28 Other psychotic disorder not due to a substance or known physiological condition; F17.200 Nicotine dependence, unspecified, uncomplicated; F32.9 Major depressive disorder, single episode, unspecified; Z59.0 Homelessness; Z79.899 Other long term (current) drug therapy
CPT/HCPCS: 36415; 80048; 80076; 80305; 80307; 80329; 81001; 85025; 99283; 99406; G0480; 81000-TC

== ENCOUNTER 2019-09-07 02:37 | Emergency (ER) | payer OTHER ==
[~2019-09-07] VITALS: Ht 180.3 cm; Wt 68.0 kg
[2019-09-07 02:44] VITALS: BP 112/70
[2019-09-07] MEDS ORDERED: LORAZEPAM 1 MG TABLET ONE (02:47)
[2019-09-07] MEDS ORDERED: OLANZAPINE 5 MG TABLET ONE (02:48)
--- NOTE | 2019-09-07 02:50 | NUR ---
Patient given written and verbal discharge instructions. Patient verbalizes understanding of instructions. Patient is ambulatory with steady gait. Refuses offer of [facility] placement. Patient given list of available shelters in surrounding area. Food provided
[2019-09-07] MEDS ORDERED: OLANZAPINE 5 MG TABLET PO ONE (03:00)
[2019-09-07] MEDS ORDERED: LORAZEPAM 1 MG TABLET PO ONE (03:00)
== END 2019-09-07 03:17 | disposition home or self-care (01) ==
LOC: ER 02:41
DX: F11.10 Opioid abuse, uncomplicated (principal); F29 Unspecified psychosis not due to a substance or known physiological condition; F32.9 Major depressive disorder, single episode, unspecified; F41.9 Anxiety disorder, unspecified; F60.0 Paranoid personality disorder; F20.9 Schizophrenia, unspecified; Z86.19 Personal history of other infectious and parasitic diseases; Z59.0 Homelessness; Z79.899 Other long term (current) drug therapy

== ENCOUNTER 2019-09-18 00:05 | Emergency (ER) | payer OTHER ==
[~2019-09-18] VITALS: Ht 180.3 cm; Wt 68.0 kg
[2019-09-18 00:05] VITALS: BP 143/89
--- NOTE | 2019-09-18 00:23 | NUR ---
SPEAKING TO PT
== END 2019-09-18 00:24 | disposition home or self-care (01) ==
LOC: ER 00:05
DX: F15.10 Other stimulant abuse, uncomplicated (principal); F32.9 Major depressive disorder, single episode, unspecified; F41.9 Anxiety disorder, unspecified; F17.200 Nicotine dependence, unspecified, uncomplicated; Z79.899 Other long term (current) drug therapy; Z59.0 Homelessness

== ENCOUNTER 2019-10-04 16:54 | Emergency (ER) | payer OTHER ==
[~2019-10-04] VITALS: Ht 180.3 cm; Wt 68.0 kg
--- NOTE | 2019-10-04 16:57 | NUR ---
SEEN AND EXAMINED BY
[2019-10-04 17:09] VITALS: BP 108/69
--- NOTE | 2019-10-04 18:36 | NUR ---
Patient discharged to home in stable condition. Written and verbal after care instructions given. Patient verbalizes understanding of instruction. Pt ambulatory with a steady gait. Pt refused to sign waiver as well as [employer]CI.
== END 2019-10-04 18:39 | disposition home or self-care (01) ==
LOC: ER 16:57
DX: S99.821A Other specified injuries of right foot, initial encounter (principal); F19.10 Other psychoactive substance abuse, uncomplicated; F32.9 Major depressive disorder, single episode, unspecified; F41.9 Anxiety disorder, unspecified; F20.9 Schizophrenia, unspecified; F17.200 Nicotine dependence, unspecified, uncomplicated; Z86.19 Personal history of other infectious and parasitic diseases; Z59.0 Homelessness; Z79.899 Other long term (current) drug therapy; W22.8XXA Striking against or struck by other objects, initial encounter; Y93.01 Activity, walking, marching and hiking; Y92.89 Other specified places as the place of occurrence of the external cause; Y99.8 Other external cause status
CPT/HCPCS: 73630-TC

== ENCOUNTER 2020-04-22 09:37 | Emergency (ER) | payer OTHER ==
[~2020-04-22] VITALS: Ht 170.2 cm; Wt 74.8 kg
--- NOTE | 2020-04-22 09:45 | NUR ---
pt lv from the streets accompanied by Pd. per report, pt c/o suicidal ideation. 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 pt states "ill do whatever i can. lethargic but easily arousable. stable vitals. sitter at bedside. security at bedside for wanding. awaiting md thompson.
--- NOTE | 2020-04-22 10:11 | NUR ---
dr gracia at bedside for eval.
[2020-04-22 10:33] LABS: BASOPHILS % (AUTO) 0.3 % (0.0-2.0); EOSINOPHILS % (AUTO) 0.4 % (0.0-6.0); HEMATOCRIT 43 % (39-51); HEMOGLOBIN 14.6 g/dL (13.5-17.5); LYMPHOCYTES # (AUTO) 0.9 /CMM (0.8-4.8); LYMPHOCYTES % (AUTO) 8.5 % (20.0-44.0); MEAN CORPUSCULAR HGB CONC 34 g/dl (31.0-36.0); MEAN CORPUSCULAR VOLUME 97 fL (80-96); MONOCYTES # (AUTO) 1.1 /CMM (0.1-1.30); MONOCYTES % (AUTO) 10.8 % (2.0-12.0); NEUTROPHILS # (AUTO) 8.4 /CMM (1.8-8.9); PLATELET COUNT (AUTO) 281 /CMM (150-450); RED BLOOD CELL COUNT(AUTO) 4.48 MIL/uL (4.5-6.0); WHITE BLOOD COUNT (AUTO) 10.5 K/uL (4.3-11.0)
--- NOTE | 2020-04-22 10:52 | NUR ---
PATIENT NOT ABLE TO PROVIDE URINE SAMPLE AT THIS TIME, MD DELVALLE
[2020-04-22 11:13] LABS: CALCIUM, SERUM 8.6 mg/dL (8.5-10.1); CARBON DIOXIDE 28 mmol/L (21-32); CHLORIDE 102 mmol/L (98-107); CREATININE 1.1 mg/dL (0.6-1.3); GLUCOSE 107 mg/dL (74-106); POTASSIUM 4.5 mmol/L (3.5-5.1); SODIUM SERUM 139 mmol/L (136-145); UREA NITROGEN, BLOOD 22 mg/dL (7-18)
[2020-04-22 11:26] LABS: ALANINE AMINOTRANSFERASE 265 U/L (12-78); ALCOHOL, BLOOD < 3 mg/dL (0-0); ALKALINE PHOSPHATASE 70 U/L (46-116); ASPARTATE AMINOTRANSFERASE 136 U/L (15-37); BILIRUBIN,DIRECT 0.2 mg/dL (0.0-0.2); BILIRUBIN,TOTAL 0.9 mg/dL (0.2-1.0); TOTAL PROTEIN, SERUM 7.8 g/dL (6.4-8.2)
[2020-04-22 11:27] LABS: ACETAMINOPHEN 0 ug/ml (10-30)
--- NOTE | 2020-04-22 12:15 | NUR ---
Clinical Social Work Note Pt. was BIB [employer] after a bystander called 911. Patient is a chronic heroin user and appears to have unintentionally overdosed on heroin. There were notes re suicidal ideation but this is not credible until further assessment as pt. was intoxicated with heroin and was then given Narcan. Patient is disheveled and dirty. Nursing staff are currently taking care of patient's medical needs. Patient is not on a 5150. He will be given referrals for medication-assisted heroin withdrawal and Dr Marin was informed that patient may have to be treated with [facility] protocol if he goes into opioid withdrawal in ED. Patient will be referred to medication assisted treatment programs and copy of all referrals will be given to patient and placed in his chart. The closest MAT clinic for patient is [address] [place] [id number] ([phone]). workers compensation claims assistant will follow up when patient is more stable medically.
--- NOTE | 2020-04-22 13:05 | NUR ---
pt provided w/ lunch tray. stable vitals.
[2020-04-22 14:40] LABS: BILIRUBIN,URINE Negative (NEGATIVE); COLOR,URINE YELLOW (YELLOW); LEUKOCYTE ESTERASE ,URINE Negative (NEGATIVE); NITRITE, URINE Negative (NEGATIVE); PROTEIN,URINE Negative (NEGATIVE); UGLUCOSE Negative (NEGATIVE); UROBILINOGEN,URINE 0.2 EU/dL (0.2)
[2020-04-22 14:41] LABS: BACTERIA,URINE None seen /HPF (None Seen); RBC,URINE 0-2 /HPF (0-2); SQUAMOUS EPITHELIAL CELL,UR Rare /HPF (None Seen); WBC,URINE 0-2 /HPF (0-3)
--- NOTE | 2020-04-22 15:13 | NUR ---
COVID SPECIMEN OBTAINED AND SENT TO LAB.
--- NOTE | 2020-04-22 15:29 | NUR ---
"SS Consult: SS Consult requested for SI & Homelessness. The pt. is a 29-year old male. Pt. was brought in by PD after reports of pt. stating he would hurt himself, per EMR. PD reported that pt. appeared to be responding to internal stimuli, per EMR. SW met pt. at bedside. The pt. appears unkempt and skin is flushed. The pt. is alert & oriented x 4 and makes appropriate eye contact. 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 SW assessed pt.s living situation. Per pt. he has been homeless for 2 years & usually stays in the [facility]. Pt. is able to plan for self -care. Pt. is ambulatory. SW explored pt.s mental Health Hx. Per pt. he has been diagnosed with paranoid Schizophrenia, anxiety, panic attacks, Depression. Per pt. he has been prescribed with Zyprexa, Abilify & Alprazolam in the past. However, he is not currently compliant with medication. Patient expressed that he is currently experiencing SI & feels that if he leaves today he will not be safe. SW offered pt. voluntary psychiatric hospitalization. Patient is agreeable. Pt. stated he is also receiving outpatient care with [facility]. SW explored pt.s drug & ETOH use. 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 The pt. stated he was experiencing auditory hallucinations earlier today but denies current hallucinations.Pt. denies HI. Pt. has fair insight & poor judgement. The pt. remained calm & cooperative throughout interview. Plan: ED nursing to fax clinicals to [facility] [[facility] [place] [address] ] for inpatient psychiatric treatment. SW completed homeless discharge. Pt. signed homeless waiver & it was file din the chart. SW provided pt. with the following homeless resources: Substance Abuse resources provided included: [facility] Substance Abuse Self-Helpline ([facility]) ; C[facility]LP [address] [facility]. [place] [phone] ; [address] [address] ; [facility] Program [address] [place]. [place] [phone] ; [facility] [address] [facility] [id number] ; [facility] [address] [facility] [address] ; [facility] [address] [facility] [phone] ; [facility] Substance Abuse Helpline(S[facility] ; [facility] ; [facility]; [facility] [place]; [facility] [place]; I[facility] [place]; [facility] [place]; [facility] [place]; [facility] [place]; [facility] [place]; Alcoholics Anonymous -SFV; [facility] ; Marijuana Anonymous -SFV; Narcotics Anonymous www.na.org; Year-round shelters: [place] [address] [place] [address] ; [facility] [place] [address] [place] [address]; [facility] [address] [facility] [address] Winter Shelters: Rylie Herrera Provider: [facility] [place] Address: [address] [place], [address] # of Beds: 47 Population Served: [facility]ed SPA 6 | [facility] [place] Josué Sharon Provider: [facility] Address: [address] [facility], [address] # of Beds: 66 Population Served: [facility] [place] Provider: First to Serve Address: [address] [facility], [address] # of Beds: 56 Population Served: Darad Chalino [place] Provider: [facility] Address: [address] [facility], [address] # of Beds: 49 Population Served: Coed SPA 8 | [place] Provider: First to Serve Address: [address] [facility]. [place], [address] # of Beds: 37 Population Served: [place] Hygiene: [facility]: [address] [place] [address] [place] ; [facility] [facility] [address] [facility] ; [facility] [address] [place] . Food Resources: [place] [facility] at [facility]- [address] [facility]; Meet Each Need with Dignity ([facility]) [address] [facility]; [facility] [address] [facility]; [facility] [address] [facility]. Mental Health resources provided: [facility] [address] [place], [place] [id number] ; [facility] [address] [facility] [address], [place] [address] ; [facility] [address] [place] [address] ; [facility] [address] [place], [place] [phone] Healthcare Clinics: [facility] [address] [facility], [address] [place]. [place] ; [facility] [address] [facility] [address] [place] [address]; [facility] [address] [place] [address]. [place] [phone]"
--- NOTE | 2020-04-22 15:33 | NUR ---
ED nursing to fax clinicals to [facility] [[address] [place] [address] ] for inpatient psychiatric treatment when COVID-19 test results are in. SW notified [place] contact, Nathaniel who will hold a bed for pt.
--- NOTE | 2020-04-22 15:35 | NUR ---
resting in bed. easily arousable. vitals stable. will continue to monitor.
--- NOTE | 2020-04-22 18:01 | NUR ---
CALLED [facility] TO FOLLOW UP WITH P[facility]ET. PER JAVIER, STILL WAITING ON DISCHARGES. NO OTHER UPDATES AT THIS TIME.
--- NOTE | 2020-04-22 19:08 | NUR ---
report given to colby camejo for torin.
--- NOTE | 2020-04-22 21:39 | NUR ---
ACCEPTING INFO: PT ACCEPTED AT [facility] ACCEPTING MD [place] PHONE NUMBER FOR REPORT EXT [phone]
--- NOTE | 2020-04-22 22:21 | NUR ---
[id number] RES# [id number], ETA TO [facility]
--- NOTE | 2020-04-22 22:54 | NUR ---
[id number] RES# [id number], [facility] eta [phone]
--- NOTE | 2020-04-22 22:59 | NUR ---
spoke to DARREN HORNE from [facility]. pt assigned to bed 623b
--- NOTE | 2020-04-22 23:31 | NUR ---
[facility] REPORT GIVEN TO EMT.
[2020-04-22 23:32] VITALS: BP 133/61
== END 2020-04-22 23:39 ==
LOC: ER 09:39
DX: R45.851 Suicidal ideations (principal); Z20.822 Contact with and (suspected) exposure to COVID-19; Z59.0 Homelessness; F17.200 Nicotine dependence, unspecified, uncomplicated; Z86.19 Personal history of other infectious and parasitic diseases; F20.0 Paranoid schizophrenia; R74.01 Elevation of levels of liver transaminase levels; F19.10 Other psychoactive substance abuse, uncomplicated
CPT/HCPCS: 36415; 80048; 80076; 80299; 80307; 80320; 81001; 84484; 85025; 87426; 93005; 99285; C9803; G0480

== ENCOUNTER 2020-08-10 23:56 | Emergency (ER) | payer MEDICAID, OTHER ==
[~2020-08-10] VITALS: Ht 180.3 cm; Wt 68.0 kg
[2020-08-11 00:02] VITALS: BP 159/85
[2020-08-11] MEDS ORDERED: ALPRAZOLAM 0.5 MG TABLET ONE (00:08)
[2020-08-11] MEDS ORDERED: OLANZAPINE 5 MG TABLET ONE (00:08)
[2020-08-11] MEDS ORDERED: ARIP10TA9 PO (00:09)
[2020-08-11] MEDS ORDERED: OLAN5TAB3 PO (00:09)
[2020-08-11] MEDS: OLANZAPINE 5 MG TABLET PO ONE (00:13)
[2020-08-11] MEDS: ARIPIPRAZOLE 5 MG TABLET PO ONE (00:13)
[2020-08-11] MEDS: ALPRAZOLAM 0.5 MG TABLET PO ONE (00:13)
== END 2020-08-11 00:14 | disposition home or self-care (01) ==
LOC: ER 23:58
DX: F20.0 Paranoid schizophrenia (principal); F41.9 Anxiety disorder, unspecified; F17.200 Nicotine dependence, unspecified, uncomplicated; Z86.19 Personal history of other infectious and parasitic diseases; Z59.0 Homelessness; Z79.899 Other long term (current) drug therapy

== ENCOUNTER 2020-08-21 03:44 | Emergency (ER) | payer MEDICAID ==
[~2020-08-21] VITALS: Ht 180.3 cm; Wt 68.0 kg
[~2020-08-21 03:44] MED LIST changes: +ARIP10TA9 PO; +OLAN5TAB3 PO
[2020-08-21 03:47] VITALS: BP 140/84
== END 2020-08-21 05:21 | disposition home or self-care (01) ==
LOC: ER 03:47
DX: F15.10 Other stimulant abuse, uncomplicated (principal); Z76.5 Malingerer [conscious simulation]; F32.9 Major depressive disorder, single episode, unspecified; F41.9 Anxiety disorder, unspecified; F20.9 Schizophrenia, unspecified; F60.0 Paranoid personality disorder; Z59.0 Homelessness; Z79.899 Other long term (current) drug therapy

== ENCOUNTER 2023-10-11 17:51 | Emergency (ER) | payer OTHER ==
[~2023-10-11] VITALS: Ht 180.3 cm; Wt 54.4 kg
[2023-10-11 17:54] VITALS: TEMP 98.1
[2023-10-11 18:53] LABS: BASOPHILS % (AUTO) 0.6 % (0.0-2.0); CALCIUM, SERUM 8.6 mg/dL (8.5-10.1); CARBON DIOXIDE 27 mmol/L (21-32); CHLORIDE 104 mmol/L (98-107); CREATININE 0.9 mg/dL (0.6-1.3); EOSINOPHILS # (AUTO) 0.1 K/uL (0.0-0.7); EOSINOPHILS % (AUTO) 1.4 % (0.0-6.0); GLUCOSE 105 mg/dL (74-106); HEMATOCRIT 35 % (39-51); HEMOGLOBIN 11.5 g/dL (13.5-17.5); LYMPHOCYTES # (AUTO) 1.7 K/uL (0.8-4.8); LYMPHOCYTES % (AUTO) 25.2 % (20.0-44.0); MEAN CORPUSCULAR HEMOGLOBIN 29 PG (26.0-33.0); MEAN CORPUSCULAR HGB CONC 33 g/dl (31.0-36.0); MEAN CORPUSCULAR VOLUME 89 fL (80-96); MONOCYTES # (AUTO) 0.7 K/uL (0.1-1.30); MONOCYTES % (AUTO) 11.1 % (2.0-12.0); NEUTROPHILS # (AUTO) 4.1 K/uL (1.8-8.9); NEUTROPHILS % (AUTO) 61.7 % (43.0-81.0); PLATELET COUNT (AUTO) 371 K/uL (150-450); POTASSIUM 3.7 mmol/L (3.5-5.1); RED BLOOD CELL COUNT(AUTO) 3.93 MIL/uL (4.5-6.0); RED CELL DISTRIBUTION WIDTH 16.2 % (11.5-15.0); SODIUM SERUM 138 mmol/L (136-145); UREA NITROGEN, BLOOD 14 mg/dL (7-18); WHITE BLOOD COUNT (AUTO) 6.6 K/uL (4.3-11.0)
[2023-10-11 18:53] LABS: APPEARANCE,URINE Clear (CLEAR); BILIRUBIN,URINE SMALL (NEGATIVE); BLOOD, URINE Negative Ery/uL (NEGATIVE); COLOR,URINE YELLOW (YELLOW); KETONES,URINE Negative (NEGATIVE); LEUKOCYTE ESTERASE ,URINE Negative (NEGATIVE); NITRITE, URINE Negative (NEGATIVE); PH,URINE 5.5 (5.0-8.0); PROTEIN,URINE 30 mg/dl (NEGATIVE); UGLUCOSE Negative (NEGATIVE); UROBILINOGEN,URINE 0.2 EU/dL (0.2)
[2023-10-11 19:02] LABS: WBC,URINE 0-2 /HPF (0-3)
[2023-10-11 19:02] LABS: ALANINE AMINOTRANSFERASE 48 U/L (12-78); ALBUMIN 3.4 g/dL (3.4-5.0); ALCOHOL, BLOOD < 3 mg/dL (0-10); ALKALINE PHOSPHATASE 58 U/L (46-116); ASPARTATE AMINOTRANSFERASE 40 U/L (15-37); BILIRUBIN,DIRECT 0.1 mg/dL (0.0-0.2); BILIRUBIN,TOTAL 0.4 mg/dL (0.2-1.0); TOTAL PROTEIN, SERUM 6.9 g/dL (6.4-8.2)
[2023-10-11 19:03] LABS: ADD URINE CULTURE YES; BACTERIA,URINE 2+ /HPF (None Seen); MUCUS,URINE Few /LPF (None Seen); SPERM,URINE Few /HPF (None Seen); SQUAMOUS EPITHELIAL CELL,UR Few /HPF (None Seen)
[2023-10-11 19:04] LABS: ACETAMINOPHEN <10 ug/ml (10-30); SALICYLATE 2.7 mg/dL (2.8-20.0)
[2023-10-11 19:08] LABS: AMPHETAMINE, URINE POSITIVE (NEGATIVE); BARBITURATE, URINE NEGATIVE (NEGATIVE); BENZODIAZEPINE, URINE NEGATIVE (NEGATIVE); CANNABINOID, URINE NEGATIVE (NEGATIVE); COCCAINE, URINE NEGATIVE (NEGATIVE); OPIATE, URINE NEGATIVE (NEGATIVE); PHENCYCLIDINE SCREEN,URINE NEGATIVE (NEGATIVE)
[2023-10-11] MEDS ORDERED: OLANZAPINE 5 MG TABLET ONE (19:10)
[2023-10-11] MEDS ORDERED: LORAZEPAM 1 MG TABLET ONE (19:10)
[2023-10-11] MEDS: OLANZAPINE 5 MG TABLET PO ONE (19:17)
[2023-10-11] MEDS: LORAZEPAM 1 MG TABLET PO ONE (19:17)
[2023-10-11] MEDS ORDERED: TDAP [DIPH/PERTUSSIS/TET] 0.5 ML VIAL IM ONE (19:18)
[2023-10-11] MEDS: TDAP [DIPH/PERTUSSIS/TET] 0.5 ML VIAL IM ONE (19:27)
[2023-10-12 05:23] VITALS: BP 111/68; O2SAT 99
== END 2023-10-12 05:23 | disposition home or self-care (01) ==
LOC: ER 18:03
DX: S60.418A Abrasion of other finger, initial encounter (principal); F15.10 Other stimulant abuse, uncomplicated; F22 Delusional disorders; F32.A Depression, unspecified; F41.9 Anxiety disorder, unspecified; F17.200 Nicotine dependence, unspecified, uncomplicated; Z60.2 Problems related to living alone; Z59.00 Homelessness unspecified; Z20.822 Contact with and (suspected) exposure to COVID-19; X58.XXXA Exposure to other specified factors, initial encounter; Y93.89 Activity, other specified; Y92.89 Other specified places as the place of occurrence of the external cause; Y99.8 Other external cause status
CPT/HCPCS: 36415; 80048-TC; 80076-TC; 81001; 85025-TC; 87086-TC; 90715; G0480